=== PATIENT | female | born 1945 | race Caucasian/White ===

== ENCOUNTER 2018-03-15 09:35 | Emergency (ER) | payer MEDICARE, OTHER ==
[~2018-03-15] VITALS: Ht 167.6 cm; Wt 86.2 kg
--- OUTSIDE RECORDS SUMMARY | 2018-03-15 09:42 | XMS REPORT ---
Author Author WALLY VILLA [facility] Address [address] [place], [place] [id number] Care Team Providers Care Social Secretary Name Role Phone WALLY VILAL PCP WALLY VILLA PreferredProvider Allergies and Adverse Reactions Name Reaction Notes SULFA (SULFONAMIDES) PENICILLINS Plan of Treatment Planned Activity Comments Planned Date Planned Time Plan/Goal *Injection,Subcutaneous/Intramuscul 12/24/2012 12:00 AM Medications Active Name Start Date Estimated Completion Date SIG Comments lisinopril-hydrochlorothiazide 10-12.5 mg oral tablet 02/26/2017 TAKE 1 TABLET DAILY -THANK YOU. citalopram 10 mg oral tablet 02/12/2018 take 1 tablet (10 mg) by oral route once daily memantine 10 mg oral tablet 02/12/2018 05/13/2018 take 1 tablet (10 mg) by oral route 2 times per day for 30 days Name Start Date Expiration Date SIG Comments alprazolam 0.5 mg oral tablet 07/28/2011 08/27/2011 TAKE 1/2 TO 1 TABLET TWICE A DAY NEEDED FOR ANXIETY -THANK YOU. Phenergan-Codeine 6.25-10 mg/5 mL oral syrup 06/20/2012 take 5 milliliters by oral route 4 times a day Cipro 500 mg oral tablet 06/20/2012 take 1 tablet (500 mg) by oral route 2 times per day Antivert 25 mg oral tablet 12/30/2013 01/09/2014 take 1 tablet (25 mg) by oral route 4 times per day for 10 days amoxicillin 500 mg oral capsule 05/18/2014 06/17/2014 take 1 capsule by oral route 3 times a day for 30 days meloxicam 15 mg oral tablet 11/05/2014 12/05/2014 take 1 tablet (15 mg) by oral route once daily for 30 days lisinopril-hydrochlorothiazide 10-12.5 mg oral tablet 11/17/2014 05/16/2015 TAKE 1 TABLET DAILY -THANK YOU. lovastatin 20 mg oral tablet 05/15/2016 06/14/2016 take 1 tablet (20 mg) by oral route once daily with the evening meal for 30 days Macrodantin 50 mg oral capsule 06/15/2016 06/22/2016 take 1 capsule by oral route 3 times a day for 7 days Discontinued Name Start Date Discontinued Date SIG Comments Celexa 20 mg oral tablet 01/11/2011 05/25/2015 take 1 tablet (20 mg) by oral route once daily Suphedrine 30 mg oral tablet 12/30/2013 05/25/2015 take1- 2 tablets every 4 hours as needed for dizziness tramadol 50 mg oral tablet 11/05/2014 09/15/2017 take 1 tablet by oral route 4 times a day as needed fluticasone 50 mcg/actuation nasal spray,suspension 05/31/2015 INHALE 1 SPRAY BY NASAL ROUTE 2 TIMES A DAY Aricept 10 mg oral tablet 05/18/2016 09/15/2017 take 1 tablet (10 mg) by oral route once daily in the evening for 30 days fluticasone 50 mcg/actuation nasal spray,suspension 06/13/2016 10/05/2017 INHALE 1 SPRAY BY NASAL ROUTE 2 TIMES A DAY Problem List Description Status Onset Hypertension Active Headache Active Arthritis unspecified Active Hyperlipidemia Active Labyrinthitis Active 12/31/2013 Primary osteoarthritis involving multiple joints Active 05/26/2015 Type 2 diabetes mellitus without complication DIET controlled Active 2014 Mixed hyperlipidemia Active 05/26/2015 Memory loss of unknown cause Active 05/21/2016 Essential hypertension Active 09/15/2017 Senile dementia without behavioral disturbance Active 09/15/2017 Mild episode of recurrent major depressive disorder Active 09/15/2017 Medication management Active 03/09/2018 Loneliness Active 03/09/2018 Vital Signs Date Time BP-Sys(mm[Hg] BP-Naye(mm[Hg]) HR(bpm) RR(rpm) Temp WT HT HC BMI BSA BMI Percentile O2 Sat(%) 03/08/2018 9:42:00 AM 118 mmHg 66 mmHg 60 bpm 16 rpm 98.4 F 180 lbs 64 in 30.8966 kg/m 1.9201 m 98 % 02/12/2018 9:28:00 AM 118 mmHg 74 mmHg 86 bpm 18 rpm 98.2 F 179 lbs 64 in 30.72 kg/m2 1.91 m2 96 % 09/14/2017 10:53:00 AM 118 mmHg 74 mmHg 88 bpm 18 rpm 98.2 F 185 lbs 99 % 08/04/2016 10:15:00 AM 115 mmHg 70 mmHg 60 bpm 18 rpm 98.3 F 172 lbs 64 in 29.5234 kg/m 1.877 m 98 % 06/15/2016 2:29:00 PM 130 mmHg 62 mmHg 62 bpm 16 rpm 98.2 F 180 lbs 64 in 30.90 kg/m2 1.92 m2 98 % 05/18/2016 11:29:00 AM 130 mmHg 82 mmHg 59 bpm 18 rpm 97.3 F 180 lbs 64 in 30.90 kg/m2 1.92 m2 97 % 11/15/2015 1:28:00 PM 108 mmHg 60 mmHg 56 bpm 16 rpm 97.4 F 187 lbs 64 in 32.0981 kg/m 1.9571 m 97 % 05/25/2015 10:28:00 AM 110 mmHg 60 mmHg 64 bpm 16 rpm 97.8 F 178 lbs 64 in 30.55 kg/m2 1.91 m2 98 % 11/05/2014 2:49:00 PM 110 mmHg 70 mmHg 70 bpm 18 rpm 98.2 F 196 lbs 64 in 33.643 kg/m 2.0036 m 100 % 05/18/2014 9:12:00 AM 130 mmHg 60 mmHg 70 bpm 16 rpm 98.6 F 198 lbs 64 in 33.99 kg/m2 2.01 m2 96 % 01/21/2014 9:09:00 AM 140 mmHg 74 mmHg 100 bpm 20 rpm 98.6 F 206.312 lbs 64 in 35.4131 kg/m 2.0557 m 96 % 12/30/2013 3:16:00 PM 130 mmHg 62 mmHg 70 bpm 20 rpm 98.6 F 209 lbs 64 in 35.87 kg/m2 2.07 m2 95 % 11/17/2013 10:07:00 AM 118 mmHg 60 mmHg 64 bpm 20 rpm 98.3 F 212 lbs 64 in 36.3893 kg/m 2.0838 m 97 % 02/05/2013 9:58:00 AM 122 mmHg 70 mmHg 65 bpm 97.6 F 225 lbs 64 in 38.62 kg/m2 2.15 m2 99 % 01/07/2013 11:00:00 AM 100 mmHg 70 mmHg 67 bpm 16 rpm 97.9 F 224 lbs 64 in 38.4491 kg/m 2.142 m 67 % 12/24/2012 10:41:00 AM 132 mmHg 72 mmHg 74 bpm 18 rpm 98.2 F 228 lbs 64 in 39.14 kg/m2 2.16 m2 98 % 06/20/2012 2:04:00 PM 130 mmHg 60 mmHg 70 bpm 18 rpm 97.2 F 222 lbs 64 in 38.1058 kg/m 2.1324 m 96 % 02/01/2012 8:34:00 AM 126 mmHg 70 mmHg 64 bpm 216 lbs 64 in 37.08 kg/m2 2.1034 m 11/09/2011 9:29:00 AM 124 mmHg 70 mmHg 86 bpm 222 lbs 64 in 38.11 kg/m2 2.13 m2 98 % 07/28/2011 10:28:00 AM 118 mmHg 74 mmHg 74 bpm 221 lbs 64 in 37.9342 kg/m 2.1276 m 96 % 06/20/2011 10:34:00 AM 124 mmHg 78 mmHg 76 bpm 223 lbs 64 in 38.28 kg/m2 2.14 m2 03/14/2011 10:30:00 AM 116 mmHg 70 mmHg 58 bpm 210 lbs 95 % 01/19/2011 9:17:00 AM 124 mmHg 70 mmHg 84 bpm 99 % 01/11/2011 11:19:00 AM 114 mmHg 80 mmHg 82 bpm 226 lbs 97 % 07/20/2009 10:07:00 AM 122 mmHg 84 mmHg 239.125 lbs Social History Name Description Comments Exercises regularly Tobacco Never smoker denies alcohol use History of Procedures Date Ordered Description Order Status 05/25/2015 12:00 AM COMPLETE CBC W/AUTO DIFF WBC Reviewed 05/25/2015 12:00 AM COMPREHEN METABOLIC PANEL Reviewed 05/25/2015 12:00 AM LIPID PANEL Reviewed 05/25/2015 12:00 AM ROUTINE VENIPUNCTURE Reviewed 11/15/2015 12:00 AM REMOVE IMPACTED EAR WAX UNI Reviewed 11/29/2015 12:00 AM REMOVE IMPACTED EAR WAX UNI Reviewed 07/28/2011 12:00 AM THER/PROPH/DIAG INJ SC/IM Reviewed 07/28/2011 12:00 AM Decadron Inj.1mg-([facility] #[id number] Reviewed 07/28/2011 12:00 AM Depo-Medrol 80 Mg Im/[facility] [id number] Reviewed 08/25/2011 12:00 AM ROUTINE VENIPUNCTURE Reviewed 08/25/2011 12:00 AM COMPLETE CBC W/AUTO DIFF WBC Reviewed 08/25/2011 12:00 AM COMPREHEN METABOLIC PANEL Reviewed 08/25/2011 12:00 AM LIPID PANEL Reviewed 05/18/2016 12:00 AM COMPLETE CBC W/AUTO DIFF WBC Returned 05/18/2016 12:00 AM COMPREHEN METABOLIC PANEL Returned 05/18/2016 12:00 AM LIPID PANEL Returned 05/18/2016 12:00 AM ROUTINE VENIPUNCTURE Reviewed 06/15/2016 2:32 PM URINALYSIS AUTO W/O SCOPE Reviewed 11/30/2011 12:00 AM ROUTINE VENIPUNCTURE Reviewed 11/30/2011 12:00 AM LIPID PANEL Reviewed 05/15/2012 11:24 AM Flu Injection 3 Years And Above [facility]# [address]-42 [facility] Reviewed 05/15/2012 12:00 AM Pneumovax Injection - [facility] Reviewed 06/20/2012 12:00 AM THER/PROPH/DIAG INJ SC/IM Reviewed 06/20/2012 12:00 AM Decadron, Per 1 Mg [facility]# [address]-19 Reviewed 06/20/2012 12:00 AM Depo-Medrol, Per 80 Mg [facility]#6785-9591-20 Reviewed 09/14/2017 12:00 AM COMPLETE CBC W/AUTO DIFF WBC Returned 09/14/2017 12:00 AM COMPREHEN METABOLIC PANEL Returned 09/14/2017 12:00 AM LIPID PANEL Returned 09/14/2017 12:00 AM ROUTINE VENIPUNCTURE Reviewed 02/05/2013 12:00 AM THER/PROPH/DIAG INJ SC/IM Reviewed 02/05/2013 12:00 AM Decadron, Per 1 Mg [facility]# [address]-85 Reviewed 02/05/2013 12:00 AM Depo-Medrol, Per 80 Mg [facility]#1172-3319-39 Reviewed 02/05/2013 12:00 AM ROUTINE VENIPUNCTURE Reviewed 02/05/2013 12:00 AM COMPLETE CBC W/AUTO DIFF WBC Reviewed 02/05/2013 12:00 AM COMPREHEN METABOLIC PANEL Reviewed 02/05/2013 12:00 AM LIPID PANEL Reviewed 11/17/2013 12:00 AM COMPLETE CBC W/AUTO DIFF WBC Reviewed 11/17/2013 12:00 AM COMPREHEN METABOLIC PANEL Reviewed 11/17/2013 12:00 AM LIPID PANEL Reviewed 11/17/2013 12:00 AM ROUTINE VENIPUNCTURE Reviewed 05/26/2010 12:00 AM IMMUNIZATION ADMIN Reviewed 05/26/2010 12:00 AM FLU VACCINE 3 YRS & > IM Reviewed 12/30/2013 12:00 AM THER/PROPH/DIAG INJ SC/IM Reviewed 12/30/2013 12:00 AM Decadron, Per 1 Mg [facility]# [address]-11 Reviewed 05/18/2014 12:00 AM COMPLETE CBC W/AUTO DIFF WBC Reviewed 05/18/2014 12:00 AM COMPREHEN METABOLIC PANEL Reviewed 05/18/2014 12:00 AM LIPID PANEL Reviewed 05/18/2014 12:00 AM ROUTINE VENIPUNCTURE Reviewed 11/05/2014 12:00 AM THER/PROPH/DIAG INJ SC/IM Reviewed 11/05/2014 12:00 AM Decadron, Per 1 Mg [facility]# [address]-22 Reviewed 11/05/2014 12:00 AM Depo-Medrol, Per 80 Mg [facility]#0714-4213-68 Reviewed 11/05/2014 12:00 AM Toradol 60 Mg [facility]#8834-0752-32 Reviewed 11/26/2014 12:00 AM COMPLETE CBC W/AUTO DIFF WBC Reviewed 11/26/2014 12:00 AM COMPREHEN METABOLIC PANEL Reviewed 11/26/2014 12:00 AM LIPID PANEL Reviewed 11/26/2014 12:00 AM ROUTINE VENIPUNCTURE Reviewed 01/19/2011 12:00 AM THER/PROPH/DIAG INJ SC/IM Reviewed 01/19/2011 12:00 AM Nubain 10mg Reviewed 01/19/2011 12:00 AM Phenergan 50 Mg Im [id number] Reviewed Results Summary Date and Description Results 08/25/2011 2:52 PM WBC 7.0 RBC 4.32 HGB 13.0 g/dLHCT 40.10 %MCV 93.0 fLMCH 30.10 pgMCHC 32.40 g/dLRDW SD 46 RDW CV 13.60 %MPV 10.20 fLPLT 267 NRBC# 0.00 NRBC% 0.0 %NEUT 54.50 %%LYMP 36.90 %%MONO 5.60 %%EOS 1.70 %%BASO 1.30 %#NEUT 3.79 #LYMP 2.57 #MONO 0.39 #EOS 0.12 #BASO 0.09 MANUAL DIFF NOT IND GLUCOSE 94.0 mg/dLSODIUM 140.0 mmol/LPOTASSIUM 3.90 mmol/LCHLORIDE 101.0 mmol/LCO2 27.0 mmol/LBUN 18.0 mg/dLCREATININE 0.70 mg/dLSGOT/AST 22.0 IU/LSGPT/ALT 14.0 IU/ LALK PHOS 95.0 IU/LTOTAL PROTEIN 7.40 g/dLALBUMIN 4.20 g/dLTOTAL BILI 0.50 mg/ dLCALCIUM 9.70 mg/dLAGE 66 GFR NonAA 84 GFR AA 102 eGFR >60 mL/min/1.73 m2eGFR AA* >60 TRIGLYCERIDES 186.0 mg/dLCHOLESTEROL 275.0 mg/dLHDL 55.0 mg/dLTOT CHOL/ HDL 5.0 LDL (CALC) 183.0 mg/dL 11/30/2011 4:09 PM TRIGLYCERIDES 169.0 mg/dLCHOLESTEROL 202.0 mg/dLHDL 45.0 mg/ dLTOT CHOL/HDL 4.5 LDL (CALC) 123.0 mg/dL 02/05/2013 3:48 PM WBC 7.2 RBC 4.20 HGB 13.0 g/dLHCT 38.60 %MCV 92.0 fLMCH 31.0 pgMCHC 33.70 g/dLRDW SD 45 RDW CV 13.40 %MPV 9.40 fLPLT 298 NRBC# 0.00 NRBC % 0.0 %NEUT 63.10 %%LYMP 27.80 %%MONO 7.10 %%EOS 1.0 %%BASO 1.0 %#NEUT 4.56 # LYMP 2.01 #MONO 0.51 #EOS 0.07 #BASO 0.07 MANUAL DIFF NOT IND GLUCOSE 103.0 mg/ dLSODIUM 140.0 mmol/LPOTASSIUM 3.90 mmol/LCHLORIDE 99.0 mmol/LCO2 27.0 mmol/ LBUN 12.0 mg/dLCREATININE 0.70 mg/dLSGOT/AST 24.0 IU/LSGPT/ALT 18.0 IU/LALK PHOS 98.0 IU/LTOTAL PROTEIN 7.40 g/dLALBUMIN 4.0 g/dLTOTAL BILI 0.80 mg/ dLCALCIUM 9.70 mg/dLAGE 67 GFR NonAA 84 GFR AA 102 eGFR 60 eGFR AA* 60 TRIGLYCERIDES 189.0 mg/dLCHOLESTEROL 271.0 mg/dLHDL 50.0 mg/dLTOT CHOL/HDL 5.4 LDL (CALC) 183.0 mg/dL 11/17/2013 4:07 PM GLUCOSE 109.0 mg/dLSODIUM 141.0 mmol/LPOTASSIUM 3.60 mmol/ LCHLORIDE 103.0 mmol/LCO2 27.0 mmol/LBUN 13.0 mg/dLCREATININE 0.80 mg/dLSGOT/ AST 23.0 IU/LSGPT/ALT 20.0 IU/LALK PHOS 90.0 IU/LTOTAL PROTEIN 7.30 g/dLALBUMIN 4.10 g/dLTOTAL BILI 0.60 mg/dLCALCIUM 9.40 mg/dLAGE 68 GFR NonAA 72 GFR AA 87 eGFR 60 eGFR AA* 60 TRIGLYCERIDES 136.0 mg/dLCHOLESTEROL 216.0 mg/dLHDL 48.0 mg/ dLTOT CHOL/HDL 4.5 LDL 137.0 mg/dLWBC 7.2 RBC 4.19 HGB 12.70 g/dLHCT 38.50 %MCV 92.0 fLMCH 30.30 pgMCHC 33.0 g/dLRDW SD 45 RDW CV 13.60 %MPV 9.60 fLPLT 294 NRBC # 0.00 NRBC% 0.0 %NEUT 67.80 %%LYMP 24.0 %%MONO 6.50 %%EOS 0.70 %%BASO 1.0 %# NEUT 4.87 #LYMP 1.72 #MONO 0.47 #EOS 0.05 #BASO 0.07 MANUAL DIFF NOT IND 05/18/2014 3:56 PM WBC 6.0 RBC 4.24 HGB 12.80 g/dLHCT 38.50 %MCV 91.0 fLMCH 30.20 pgMCHC 33.20 g/dLRDW SD 44 RDW CV 13.30 %MPV 9.40 fLPLT 299 NRBC# 0.00 NRBC% 0.0 %NEUT 62.20 %%LYMP 28.30 %%MONO 6.80 %%EOS 1.20 %%BASO 1.50 %#NEUT 3.76 #LYMP 1.71 #MONO 0.41 #EOS 0.07 #BASO 0.09 MANUAL DIFF NOT IND TRIGLYCERIDES 161.0 mg/dLCHOLESTEROL 226.0 mg/dLHDL 46.0 mg/dLTOT CHOL/HDL 4.9 LDL (CALC) 148.0 mg/dLGLUCOSE 109.0 mg/dLSODIUM 139.0 mmol/LPOTASSIUM 3.60 mmol/ LCHLORIDE 101.0 mmol/LCO2 26.0 mmol/LBUN 9.0 mg/dLCREATININE 0.80 mg/dLSGOT/AST 22.0 IU/LSGPT/ALT 18.0 IU/LALK PHOS 78.0 IU/LTOTAL PROTEIN 7.0 g/dLALBUMIN 4.0 g /dLTOTAL BILI 0.80 mg/dLCALCIUM 9.90 mg/dLAGE 68 GFR NonAA 72 GFR AA 87 eGFR 60 eGFR AA* 60 11/26/2014 3:25 PM TRIGLYCERIDES 122.0 mg/dLCHOLESTEROL 202.0 mg/dLHDL 53.0 mg/ dLTOT CHOL/HDL 3.8 LDL (CALC) 125.0 mg/dLGLUCOSE 91.0 mg/dLSODIUM 143.0 mmol/ LPOTASSIUM 3.80 mmol/LCHLORIDE 100.0 mmol/LCO2 29.0 mmol/LBUN 12.0 mg/ dLCREATININE 0.80 mg/dLSGOT/AST 19.0 IU/LSGPT/ALT 17.0 IU/LALK PHOS 81.0 IU/ LTOTAL PROTEIN 7.40 g/dLALBUMIN 4.40 g/dLTOTAL BILI 0.90 mg/dLCALCIUM 10.20 mg/ dLAGE 69 GFR NonAA 71 GFR AA 86 eGFR >60 mL/min/1.73 m2eGFR AA* >60 WBC 7.2 RBC 4.44 HGB 13.60 g/dLHCT 40.90 %MCV 92.0 fLMCH 30.60 pgMCHC 33.30 g/dLRDW SD 45 RDW CV 13.40 %MPV 9.40 fLPLT 290 NRBC# 0.00 NRBC% 0.0 %NEUT 67.50 %%LYMP 24.80 % %MONO 6.50 %%EOS 0.80 %%BASO 0.40 %#NEUT 4.86 #LYMP 1.79 #MONO 0.47 #EOS 0.06 # BASO 0.03 MANUAL DIFF NOT IND 05/25/2015 4:20 PM WBC 7.0 RBC 4.50 HGB 13.60 g/dLHCT 41.70 %MCV 93.0 fLMCH 30.20 pgMCHC 32.60 g/dLRDW SD 47 RDW CV 13.80 %MPV 9.30 fLPLT 286 NRBC# 0.00 NRBC% 0.0 %NEUT 68.90 %%LYMP 23.80 %%MONO 5.90 %%EOS 0.40 %%BASO 1.0 %#NEUT 4.80 #LYMP 1.66 #MONO 0.41 #EOS 0.03 #BASO 0.07 MANUAL DIFF NOT IND GLUCOSE 107.0 mg/dLSODIUM 140.0 mmol/LPOTASSIUM 3.60 mmol/LCHLORIDE 101.0 mmol/LCO2 28.0 mmol/LBUN 11.0 mg/dLCREATININE 0.80 mg/dLSGOT/AST 22.0 IU/LSGPT/ALT 17.0 IU /LALK PHOS 85.0 IU/LTOTAL PROTEIN 7.20 g/dLALBUMIN 4.40 g/dLTOTAL BILI 0.70 mg/ dLCALCIUM 10.10 mg/dLAGE 69 GFR NonAA 71 GFR AA 86 eGFR >60 mL/min/1.73meGFR AA* >60 TRIGLYCERIDES 142.0 mg/dLCHOLESTEROL 212.0 mg/dLHDL 53.0 mg/dLTOT CHOL/ HDL 4.0 LDL (CALC) 131.0 mg/dL 06/15/2016 2:32 PM Clarity Ur clear Color Ur dark yellow Glucose Ur-sCnc - Bilirub Ur Ql Strip - Ketones Ur Ql Strip - Sp Gr Ur Qn 1.025 Hgb Ur Ql Strip large pH Ur-LsCnc 6.0 Prot Ur Ql Strip - Urobilinogen Ur-mCnc - Nitrite Ur Ql Strip - WBC Est Ur Ql Strip trace History Of Immunizations Name Date Admin Mfg Name Mfg Code Trade Name Lot# Route Inj Vis Given Vis Pub CVX Influenza 05/26/2010 sanofi pasteur PMC FLUZONE [id number] Intramuscular Left Deltoid 05/26/2010 02/22/2010 999 Influenza 05/15/2012 sanofi pasteur PMC FLUZONE [id number] Intramuscular Right Deltoid 05/15/2012 01/15/2012 141 X 05/15/2012 [employer] MSD PNEUMOVAX 23 [id number] Intramuscular Left Deltoid 05/15/2012 02/21/2008 33 Influenza 06/03/2016 Raymond FLUVIRIN [id number] Intramuscular Right Upper Arm 06/03/2016 02/19/2015 141 History of Past Illness Name Date of Onset Comments Back Muscle Spasm Jul 20 2009 10:11AM Gastroesophageal Reflux Jul 20 2009 10:11AM Obesity Jul 20 2009 10:11AM Arthritis unspecified Headache Hypertension Depression and anxiety Hyperlipidemia Labyrinthitis 12/31/2013 Flu May 26 2010 8:31AM Primary osteoarthritis involving multiple joints 05/26/2015 Type 2 diabetes mellitus without complication DIET controlled 05/26/2015 Mixed hyperlipidemia 05/26/2015 Memory loss of unknown cause 05/21/2016 Depressive Disorder Jan 11 2011 11:18AM Essential Hypertension Jan 19 2011 9:16AM Headache Jan 19 2011 9:16AM Anxiety Disorder Jan 19 2011 9:16AM Depressive Disorder Jan 19 2011 9:16AM Essential Hypertension Mar 14 2011 10:28AM Osteoarthrosis, generalized, multiple sites Mar 14 2011 10:28AM Depressive Disorder Mar 14 2011 10:28AM Essential hypertension 09/15/2017 Senile dementia without behavioral disturbance 09/15/2017 Mild episode of recurrent major depressive disorder 09/15/2017 Dementia arising in the senium and presenium 02/12/2018 Medication management 03/09/2018 Loneliness 03/09/2018 Essential Hypertension Jun 20 2011 10:35AM Anxiety Disorder Jun 20 2011 10:35AM Depressive Disorder Jun 20 2011 10:35AM Cough Jul 28 2011 10:29AM Bronchitis, Acute Jul 28 2011 10:29AM Hypertension Aug 25 2011 9:08AM Hyperlipidemia Aug 25 2011 9:08AM General Medical Exam, Adult Nov 09 2011 9:33AM Hyperlipidemia Nov 30 2011 9:25AM Anxiety Disorder Feb 01 2012 8:40AM Depressive Disorder Feb 01 2012 8:40AM Flu May 15 2012 11:24AM Pneumococcus May 15 2012 11:25AM Cough Jun 20 2012 2:05PM Post-nasal drainage Jun 20 2012 2:05PM Upper Respiratory Infection Jun 20 2012 2:05PM Eustachian Tube Dysfunction Dec 24 2012 10:41AM Seasonal Allergies Dec 24 2012 10:41AM Post-nasal drainage Dec 24 2012 10:41AM Labyrinthitis Dec 24 2012 10:41AM Labyrinthitis Jan 07 2013 11:02AM Seasonal Allergies Feb 05 2013 10:00AM Upper Respiratory Infection Feb 05 2013 10:00AM Labyrinthitis Feb 05 2013 10:00AM Hypertension Feb 05 2013 11:43AM Hyperlipidemia Feb 05 2013 11:43AM Hypertension Nov 17 2013 10:12AM Hyperlipidemia Nov 17 2013 10:12AM Depression and anxiety Nov 17 2013 10:12AM residential medication use Nov 17 2013 10:12AM Eustachian Tube Dysfunction Nov 17 2013 10:07AM Hypertension Nov 17 2013 10:07AM Hyperlipidemia Nov 17 2013 10:07AM Seasonal Allergies Dec 30 2013 3:17PM Labyrinthitis Dec 30 2013 3:17PM Eustachian Tube Dysfunction Jan 21 2014 9:10AM Seasonal Allergies Jan 21 2014 9:10AM Post-nasal drainage Jan 21 2014 9:10AM Hypertension May 18 2014 9:16AM Hyperlipidemia May 18 2014 9:16AM residential use of drug May 18 2014 9:16AM Eustachian Tube Dysfunction May 18 2014 9:12AM Hypertension May 18 2014 9:12AM Arthritis unspecified May 18 2014 9:12AM Hyperlipidemia May 18 2014 9:12AM Depression and anxiety May 18 2014 9:12AM Hearing loss May 18 2014 9:12AM Foot pain, right Nov 05 2014 2:50PM Hypertension Nov 26 2014 10:51AM Hyperlipidemia Nov 26 2014 10:51AM joint terminal attack controller use of drug Nov 26 2014 10:51AM Hypertension May 25 2015 11:53AM Hyperlipidemia May 25 2015 11:53AM joint terminal attack controller use of drug May 25 2015 11:53AM Primary osteoarthritis involving multiple joints May 25 2015 10:29AM Type 2 diabetes mellitus without complication DIET controlled May 25 2015 10: 29AM Hypertension May 25 2015 10:29AM Mixed hyperlipidemia May 25 2015 10:29AM Mild Chronic Depression and anxiety Stable May 25 2015 10:29AM Bilateral impacted cerumen Nov 15 2015 1:28PM Moderate Acute Diminished hearing, bilateral Nov 15 2015 1:28PM Cerumen Impaction Nov 22 2015 4:20PM Cerumen Impaction Nov 29 2015 11:27AM Acute diffuse otitis externa of both ears Nov 29 2015 11:27AM Hypertension May 18 2016 10:57AM Hyperlipidemia May 18 2016 10:57AM residential use of drug May 18 2016 10:57AM Mild Acute Memory loss of unknown cause May 18 2016 11:29AM Acute cystitis with hematuria Jun 15 2016 2:30PM Moderate Chronic Stress incontinence, female Jun 15 2016 2:30PM Actinic keratoses Aug 04 2016 11:39AM Hypertension Sep 14 2017 8:39AM Hyperlipidemia Sep 14 2017 8:39AM residential use of drug Sep 14 2017 8:39AM Mixed hyperlipidemia Sep 14 2017 10:53AM Primary osteoarthritis involving multiple joints Sep 14 2017 10:53AM Type 2 diabetes mellitus without complication DIET controlled Sep 14 2017 10: 53AM Essential hypertension Sep 14 2017 10:53AM Senile dementia without behavioral disturbance Sep 14 2017 10:53AM Mild episode of recurrent major depressive disorder Sep 14 2017 10:53AM Moderate Dementia arising in the senium and presenium Worsening Feb 12 2018 9 :29AM Essential hypertension Feb 12 2018 9:29AM Memory loss of unknown cause Feb 12 2018 9:29AM Mild episode of recurrent major depressive disorder Feb 12 2018 9:29AM Senile dementia without behavioral disturbance Feb 12 2018 9:29AM Type 2 diabetes mellitus without complication DIET controlled Feb 12 2018 9: 29AM Essential hypertension Mar 08 2018 9:43AM Mild episode of recurrent major depressive disorder Mar 08 2018 9:43AM Senile dementia without behavioral disturbance Mar 08 2018 9:43AM Medication management Mar 08 2018 9:43AM Moderate Loneliness Mar 08 2018 9:43AM Payers Insurance Name Company Name Plan Name Plan Number Policy Number Policy Group Number Start Date Medicare [employer] Medicare [employer] [id number] N/A [facility] [id number] N/A Medicare Part A Medicare Part A [id number] N/A [employer] [id number] N/A [employer] [id number] N/A Medicare Part A Medicare - Lab/Xray [id number] N/A Medicare RH Medicare RH [id number] N/A [employer] [id number] Friday, July 16, 2010 History of Encounters Visit Date Visit Type Provider 03/08/2018 Office visit WALLY VILLA PA 02/12/2018 Office visit WALLY VILLA PA 09/14/2017 Office visit WALLY VILLA PA 08/04/2016 Office visit WALLY VILLA PA 06/15/2016 Office visit WALLY VILLA PA 05/18/2016 Office visit WALLY VILLA PA 11/29/2015 Office visit WALLY VILLA PA 11/15/2015 Office visit WALLY VILLA PA 05/25/2015 Office visit WALLY VILLA PA 11/26/2014 Office visit WALLY VILLA PA 11/05/2014 Office visit 11/05/2014 Office visit WALLY VILLA PA 05/18/2014 Office visit WALLY VILLA PA 01/21/2014 Office visit WALLY VILLA PA 12/30/2013 Office visit WALLY VILLA PA 11/17/2013 Office visit WALLY VILLA PA 02/05/2013 Office visit WALLY VILLA PA 01/07/2013 Office visit WALLY VILLA PA 12/24/2012 Office visit WALLY VILLA PA 06/20/2012 Office visit WALLY VILLA PA 05/15/2012 Office visit WALLY VILLA PA 02/01/2012 Office visit WALLY VILLA PA 11/30/2011 Office visit WALLY VILLA PA 11/09/2011 Office visit WALLY VILLA PA 08/25/2011 Office visit WALLY VILLA PA 07/28/2011 Office visit WALLY VILLA PA 06/20/2011 Office visit WALLY VILLA PA 03/14/2011 Office visit Wally Villa PA-C 02/06/2011 Office visit Wally Villa PA-C 01/19/2011 Office visit Wally Villa PA-C 01/11/2011 Office visit Wally Villa PA-C 05/26/2010 Nurse visit Wally Villa PA-C 07/20/2009 Office visit Wally Villa PA-C 05/19/2009 Nurse visit Wally Villa PA-C
--- OUTSIDE RECORDS SUMMARY | 2018-03-15 09:43 | XMS REPORT ---
Author Author WALLY VILLA [facility] Address [address] [place], [place] [id number] Care Team Providers Care Real Estate Agent/Broker Name Role Phone WALLY VILLA PCP Allergies and Adverse Reactions Name Reaction Notes [...] of recurrent major depressive disorder Active 09/15/2017 Vital Signs Date Time BP-Sys(mm[Hg] BP-Naye(mm[Hg]) HR(bpm) RR(rpm) Temp WT HT HC BMI BSA BMI Percentile O2 Sat(%) 02/12/2018 9:28:00 AM 118 mmHg 74 mmHg 86 bpm 18 rpm 98.2 F 179 lbs 64 in 30.725 kg/m 1.9148 m 96 % 09/14/2017 10:53:00 AM 118 mmHg [...] bpm 216 lbs 64 in 37.08 kg/m2 2.10 m2 11/09/2011 9:29:00 AM 124 mmHg 70 mmHg [...] INJ SC/IM Reviewed 07/28/2011 12:00 AM Decadron Inj.1mg-([facility]) [facility] #[id number] Reviewed 07/28/2011 12:00 AM Depo-Medrol 80 Mg Im/[facility] [id number] Reviewed 08/25/2011 12:00 AM ROUTINE VENIPUNCTURE Reviewed [...] AM Flu Injection 3 Years And Above [facility]# [address]-06 RHC Reviewed 05/15/2012 12:00 AM Pneumovax Injection - [facility] Reviewed 06/20/2012 12:00 AM THER/PROPH/DIAG INJ SC/IM Reviewed 06/20/2012 12:00 AM Decadron, Per 1 Mg [facility]# [address]-56 Reviewed 06/20/2012 12:00 AM Depo-Medrol, Per 80 Mg [facility]#4328-0824-03 Reviewed 09/14/2017 12:00 AM COMPLETE CBC W/AUTO DIFF WBC Returned 09/14/2017 12:00 AM COMPREHEN METABOLIC PANEL Returned 09/14/2017 12:00 AM LIPID PANEL Returned 09/14/2017 12:00 AM ROUTINE VENIPUNCTURE Reviewed 02/05/2013 12:00 AM THER/PROPH/DIAG INJ SC/IM Reviewed 02/05/2013 12:00 AM Decadron, Per 1 Mg [facility]# [address]-45 Reviewed 02/05/2013 12:00 AM Depo-Medrol, Per 80 Mg [facility]#7531-5705-11 Reviewed 02/05/2013 12:00 AM ROUTINE VENIPUNCTURE Reviewed [...] 12/30/2013 12:00 AM Decadron, Per 1 Mg [facility]# [address]-86 Reviewed 05/18/2014 12:00 AM COMPLETE CBC W/AUTO DIFF WBC Reviewed 05/18/2014 12:00 AM COMPREHEN METABOLIC PANEL Reviewed 05/18/2014 12:00 AM LIPID PANEL Reviewed 05/18/2014 12:00 AM ROUTINE VENIPUNCTURE Reviewed 11/05/2014 12:00 AM THER/PROPH/DIAG INJ SC/IM Reviewed 11/05/2014 12:00 AM Decadron, Per 1 Mg [facility]# [address]-24 Reviewed 11/05/2014 12:00 AM Depo-Medrol, Per 80 Mg [facility]#5531-6172-00 Reviewed 11/05/2014 12:00 AM Toradol 60 Mg [facility]#5419-6284-12 Reviewed 11/26/2014 12:00 AM COMPLETE CBC W/AUTO DIFF WBC Reviewed 11/26/2014 12:00 AM COMPREHEN METABOLIC PANEL Reviewed 11/26/2014 12:00 AM LIPID PANEL Reviewed 11/26/2014 12:00 AM ROUTINE VENIPUNCTURE Reviewed 01/19/2011 12:00 AM THER/PROPH/DIAG INJ SC/IM Reviewed 01/19/2011 12:00 AM Nubain 10mg Reviewed 01/19/2011 12:00 AM Phenergan 50 Mg Im [id number] Reviewed Results Summary Date and Description Results [...] CVX Influenza 05/26/2010 sanofi pasteur PMC FLUZONE [id number] Intramuscular Left Deltoid 05/26/2010 02/22/2010 999 Influenza 05/15/2012 sanofi pasteur PMC FLUZONE [id number] Intramuscular Right Deltoid 05/15/2012 01/15/2012 141 X 05/15/2012 Merck [employer] Co[employer] Inc. MSD PNEUMOVAX 23 [id number] Intramuscular Left Deltoid 05/15/2012 02/21/2008 33 Influenza 06/03/2016 Raymond FLUVIRIN [id number] Intramuscular Right Upper Arm 06/03/2016 02/19/2015 141 [...] arising in the senium and presenium 02/12/2018 Essential Hypertension Jun 20 2011 10:35AM Anxiety [...] Depression and anxiety Nov 17 2013 10:12AM long term medication use Nov 17 2013 10:12AM Eustachian Tube Dysfunction Nov 17 2013 10:07AM Hypertension Nov 17 2013 10:07AM Hyperlipidemia Nov 17 2013 10:07AM Seasonal Allergies Dec 30 2013 3:17PM Labyrinthitis Dec 30 2013 3:17PM Eustachian Tube Dysfunction Jan 21 2014 9:10AM Seasonal Allergies Jan 21 2014 9:10AM Post-nasal drainage Jan 21 2014 9:10AM Hypertension May 18 2014 9:16AM Hyperlipidemia May 18 2014 9:16AM long term use of drug May 18 2014 9:16AM Eustachian Tube Dysfunction May 18 2014 9:12AM Hypertension May 18 2014 9:12AM Arthritis unspecified May 18 2014 9:12AM Hyperlipidemia May 18 2014 9:12AM Depression and anxiety May 18 2014 9:12AM Hearing loss May 18 2014 9:12AM Foot pain, right Nov 05 2014 2:50PM Hypertension Nov 26 2014 10:51AM Hyperlipidemia Nov 26 2014 10:51AM long term use of drug Nov 26 2014 10:51AM Hypertension May 25 2015 11:53AM Hyperlipidemia May 25 2015 11:53AM long term use of drug May 25 2015 11:53AM [...] 2016 10:57AM Hyperlipidemia May 18 2016 10:57AM longterm use of drug May 18 2016 10:57AM Mild Acute Memory loss of unknown cause May 18 2016 11:29AM Acute cystitis with hematuria Jun 15 2016 2:30PM Moderate Chronic Stress incontinence, female Jun 15 2016 2:30PM Actinic keratoses Aug 04 2016 11:39AM Hypertension Sep 14 2017 8:39AM Hyperlipidemia Sep 14 2017 8:39AM long term use of drug Sep 14 2017 8:39AM [...] DIET controlled Feb 12 2018 9: 29AM Payers Insurance Name Company Name Plan Name Plan Number Policy Number Policy Group Number Start Date Medicare [facility] Medicare [facility] [id number] N/A [employer] [id number] Friday, 2010 BCBS [employer] [id number] N/A Medicare Part A Medicare Part A [id number] N/A [employer] [id number] N/A [employer] [id number] N/A Medicare Part A Medicare - Lab/Xray [id number] N/A History of Encounters Visit Date Visit Type Provider 02/12/2018 Office visit WALLY JUAREZ 09/14/2017 Office visit WALLY JUAREZ 08/04/2016 Office visit WALLY JUAREZ 06/15/2016 Office visit WALLY JUAREZ 05/18/2016 Office visit WALLY JUAREZ 11/29/2015 Office visit WALLY JUAREZ 11/15/2015 Office visit WALLY JUAREZ 05/25/2015 Office visit WALLY JUAREZ 11/26/2014 Office visit WALLY JUAREZ 11/05/2014 Office visit 11/05/2014 Office visit WALLY JUAREZ 05/18/2014 Office visit WALLY JUAREZ 01/21/2014 Office visit WALLY VILLA PA 12/30/2013 [...]
--- OUTSIDE RECORDS SUMMARY | 2018-03-15 09:44 | XMS REPORT ---
Author Author [facility] Organization [facility] Address [address] [place], [place] [phone] Care Team Providers Care Crusher Setter Name Role Phone PCP Unavailable Allergies and Adverse Reactions Name Reaction Notes SULFA (SULFONAMIDES) PENICILLINS Plan of Treatment Planned Activity Comments Planned Date Planned Time Plan/Goal COMPLETE CBC W/AUTO DIFF WBC 11/26/2014 12:00 AM COMPREHEN METABOLIC PANEL 11/26/2014 12:00 AM LIPID PANEL 11/26/2014 12:00 AM Medications Active Name Start Date Estimated Completion Date SIG Comments Celexa Oral Tablet 20 mg 01/11/2011 take 1 tablet (20 mg) by oral route once daily Suphedrine oral tablet 30 mg 12/30/2013 take1- 2 tablets every 4 hours as needed for dizziness Flonase nasal spray,suspension 50 mcg/actuation 05/18/2014 inhale 1 spray by nasal route 2 times a day meloxicam oral tablet 15 mg 11/05/2014 12/05/2014 take 1 tablet (15 mg) by oral route once daily for 30 days tramadol oral tablet 50 mg 11/05/2014 take 1 tablet by oral route 4 times a day as needed lovastatin Oral Tablet 20 mg 11/17/2014 05/16/2015 take 1 tablet (20 mg) by oral route once daily with the evening meal for 30 days lisinopril-hydrochlorothiazide oral tablet 10-12.5 mg 11/17/2014 05/16/2015 TAKE 1 TABLET DAILY -THANK YOU. Name Start Date Expiration Date SIG Comments alprazolam Oral Tablet 0.5 mg 07/28/2011 08/27/2011 TAKE 1/2 TO 1 TABLET TWICE A DAY NEEDED FOR ANXIETY -THANK YOU. Phenergan-Codeine Oral Syrup 6.25-10 mg/5 mL 06/20/2012 take 5 milliliters by oral route 4 times a day Cipro Oral tablet 500 mg 06/20/2012 take 1 tablet (500 mg) by oral route 2 times per day Antivert Oral tablet 25 mg 12/30/2013 01/09/2014 take 1 tablet (25 mg) by oral route 4 times per day for 10 days amoxicillin oral capsule 500 mg 05/18/2014 06/17/2014 take 1 capsule by oral route 3 times a day for 30 days Problem List Description Status Onset Hypertension Active Headache Active Arthritis unspecified Active Hyperlipidemia Active Depression and anxiety Active Labyrinthitis Active 12/31/2013 Vital Signs Date Time BP-Sys(mm[Hg] BP-Naye(mm[Hg]) HR(bpm) RR(rpm) Temp WT HT HC BMI BSA BMI Percentile O2 Sat(%) 11/05/2014 2:49:00 PM 110 mmHg 70 mmHg 70 bpm 18 rpm 98.2 F 196 lbs 64 in 33.64 kg/m2 2.00 m2 100 % 05/18/2014 9:12:00 AM 130 mmHg 60 mmHg 70 bpm 16 rpm 98.6 F 198 lbs 64 in 33.9863 kg/m 2.0138 m 96 % 01/21/2014 9:09:00 AM 140 mmHg 74 mmHg 100 bpm 20 rpm 98.6 F 206.312 lbs 64 in 35.41 kg/m2 2.06 m2 96 % 12/30/2013 3:16:00 PM 130 mmHg 62 mmHg 70 bpm 20 rpm 98.6 F 209 lbs 64 in 35.8744 kg/m 2.069 m 95 % 11/17/2013 10:07:00 AM 118 mmHg 60 mmHg 64 bpm 20 rpm 98.3 F 212 lbs 64 in 36.39 kg/m2 2.08 m2 97 % 02/05/2013 9:58:00 AM 122 mmHg 70 mmHg 65 bpm 97.6 F 225 lbs 64 in 38.6208 kg/m 2.1467 m 99 % 01/07/2013 11:00:00 AM 100 mmHg 70 mmHg 67 bpm 16 rpm 97.9 F 224 lbs 64 in 38.45 kg/m2 2.14 m2 67 % 12/24/2012 10:41:00 AM 132 mmHg 72 mmHg 74 bpm 18 rpm 98.2 F 228 lbs 64 in 39.1357 kg/m 2.161 m 98 % 06/20/2012 2:04:00 PM 130 mmHg 60 mmHg 70 bpm 18 rpm 97.2 F 222 lbs 64 in 38.11 kg/m2 2.13 m2 96 % 02/01/2012 8:34:00 AM 126 mmHg 70 mmHg 64 bpm 216 lbs 64 in 37.0759 kg/m 2.1034 m 11/09/2011 9:29:00 AM 124 mmHg [...] of Procedures Date Ordered Description Order Status 07/28/2011 12:00 AM THER/PROPH/DIAG INJ SC/IM Reviewed 08/25/2011 12:00 AM ROUTINE VENIPUNCTURE Reviewed 08/25/2011 12:00 AM COMPLETE CBC W/AUTO DIFF WBC Returned 08/25/2011 12:00 AM COMPREHEN METABOLIC PANEL Returned 08/25/2011 12:00 AM LIPID PANEL Returned 11/30/2011 12:00 AM ROUTINE VENIPUNCTURE Reviewed 11/30/2011 12:00 AM LIPID PANEL Returned 06/20/2012 12:00 AM THER/PROPH/DIAG INJ SC/IM Reviewed 02/05/2013 12:00 AM THER/PROPH/DIAG INJ SC/IM Reviewed 02/05/2013 12:00 AM ROUTINE VENIPUNCTURE Reviewed [...] 12/30/2013 12:00 AM THER/PROPH/DIAG INJ SC/IM Reviewed 05/18/2014 12:00 AM COMPLETE CBC W/AUTO DIFF WBC Returned 05/18/2014 12:00 AM COMPREHEN METABOLIC PANEL Returned 05/18/2014 12:00 AM LIPID PANEL Returned 05/18/2014 12:00 AM ROUTINE VENIPUNCTURE Reviewed 11/05/2014 12:00 AM THER/PROPH/DIAG INJ SC/IM Reviewed 11/26/2014 12:00 AM ROUTINE VENIPUNCTURE Reviewed 01/19/2011 12:00 AM THER/PROPH/DIAG INJ SC/IM Reviewed Results Summary Data and Description Results 08/25/2011 2:52 PM WBC 7.0 RBC 4.32 HGB 13.0 g/dLHCT 40.10 %MCV 93.0 fLMCH 30.10 pgMCHC 32.40 g/dLRDW CV 13.60 %MPV 10.20 fLPLT 267 %NEUT 54.50 %%LYMP 36.90 %%MONO 5.60 %%EOS 1.70 %%BASO 1.30 %#NEUT 3.79 #LYMP 2.57 #MONO 0.39 #EOS 0.12 #BASO 0.09 GLUCOSE 94.0 mg/dLSODIUM 140.0 mmol/LPOTASSIUM 3.90 mmol/ LCHLORIDE 101.0 mmol/LCO2 27.0 mmol/LBUN 18.0 mg/dLCREATININE 0.70 mg/dLSGOT/ AST 22.0 IU/LSGPT/ALT 14.0 IU/LALK PHOS 95.0 IU/LTOTAL PROTEIN 7.40 g/dLALBUMIN 4.20 g/dLTOTAL BILI 0.50 mg/dLCALCIUM 9.70 mg/dLeGFR >60 mL/min/1.73 [id number] 186.0 mg/dLCHOLESTEROL 275.0 mg/dLHDL 55.0 mg/dLLDL (CALC) 183.0 mg/dL 11/30/2011 4:09 PM TRIGLYCERIDES 169.0 mg/dLCHOLESTEROL 202.0 mg/dLHDL 45.0 mg/ dLLDL (CALC) 123.0 mg/dL 02/05/2013 3:48 PM WBC 7.2 RBC 4.20 HGB 13.0 g/dLHCT 38.60 %MCV 92.0 fLMCH 31.0 pgMCHC 33.70 g/dLRDW CV 13.40 %MPV 9.40 fLPLT 298 %NEUT 63.10 %%LYMP 27.80 %%MONO 7.10 %%EOS 1.0 %%BASO 1.0 %#NEUT 4.56 #LYMP 2.01 #MONO 0.51 #EOS 0.07 # BASO 0.07 GLUCOSE 103.0 mg/dLSODIUM 140.0 mmol/LPOTASSIUM 3.90 mmol/LCHLORIDE 99.0 mmol/LCO2 27.0 mmol/LBUN 12.0 mg/dLCREATININE 0.70 mg/dLSGOT/AST 24.0 IU/ LSGPT/ALT 18.0 IU/LALK PHOS 98.0 IU/LTOTAL PROTEIN 7.40 g/dLALBUMIN 4.0 g/ dLTOTAL BILI 0.80 mg/dLCALCIUM 9.70 mg/dLeGFR 60 TRIGLYCERIDES 189.0 mg/ dLCHOLESTEROL 271.0 mg/dLHDL 50.0 mg/dLLDL (CALC) 183.0 mg/dL 11/17/2013 4:07 PM GLUCOSE 109.0 mg/dLSODIUM 141.0 mmol/LPOTASSIUM 3.60 mmol/ LCHLORIDE 103.0 mmol/LCO2 27.0 mmol/LBUN 13.0 mg/dLCREATININE 0.80 mg/dLSGOT/ AST 23.0 IU/LSGPT/ALT 20.0 IU/LALK PHOS 90.0 IU/LTOTAL PROTEIN 7.30 g/dLALBUMIN 4.10 g/dLTOTAL BILI 0.60 mg/dLCALCIUM 9.40 mg/dLeGFR 60 TRIGLYCERIDES 136.0 mg/ dLCHOLESTEROL 216.0 mg/dLHDL 48.0 mg/dLLDL 137.0 mg/dLWBC 7.2 RBC 4.19 HGB 12.70 g/dLHCT 38.50 %MCV 92.0 fLMCH 30.30 pgMCHC 33.0 g/dLRDW CV 13.60 %MPV 9.60 fLPLT 294 %NEUT 67.80 %%LYMP 24.0 %%MONO 6.50 %%EOS 0.70 %%BASO 1.0 %#NEUT 4.87 #LYMP 1.72 #MONO 0.47 #EOS 0.05 #BASO 0.07 05/18/2014 3:56 PM WBC 6.0 RBC 4.24 HGB 12.80 g/dLHCT 38.50 %MCV 91.0 fLMCH 30.20 pgMCHC 33.20 g/dLRDW CV 13.30 %MPV 9.40 fLPLT 299 %NEUT 62.20 %%LYMP 28.30 %%MONO 6.80 %%EOS 1.20 %%BASO 1.50 %#NEUT 3.76 #LYMP 1.71 #MONO 0.41 #EOS 0.07 #BASO 0.09 TRIGLYCERIDES 161.0 mg/dLCHOLESTEROL 226.0 mg/dLHDL 46.0 mg/ dLLDL (CALC) 148.0 mg/dLGLUCOSE 109.0 mg/dLSODIUM 139.0 mmol/LPOTASSIUM 3.60 mmol/LCHLORIDE 101.0 mmol/LCO2 26.0 mmol/LBUN 9.0 mg/dLCREATININE 0.80 mg/dLSGOT /AST 22.0 IU/LSGPT/ALT 18.0 IU/LALK PHOS 78.0 IU/LTOTAL PROTEIN 7.0 g/dLALBUMIN 4.0 g/dLTOTAL BILI 0.80 mg/dLCALCIUM 9.90 mg/dLeGFR 60 History Of Immunizations Name Date Admin Mf Name Mf Code Trade Name Lot# Route Inj Vis Given Vis Pub CVX Influenza 05/26/2010 sanofi pasteur PMC Fluzone [id number] Intramuscular Left Deltoid 05/26/2010 02/22/2010 999 Influenza 05/15/2012 sanofi pasteur PMC Fluzone [id number] Intramuscular Right Deltoid 05/15/2012 01/15/2012 141 Pneumococcal 05/15/2012 Merck & Co., Inc. MSD Pneumovax 23 [id number] Intramuscular Left Deltoid 05/15/2012 02/21/2008 33 History of Past Illness Name Date of Onset Comments Back Muscle Spasm Jul 20 2009 10:11AM Gastroesophageal Reflux Jul 20 2009 10:11AM Obesity Jul 20 2009 10:11AM Arthritis unspecified Headache Hypertension Depression and anxiety Hyperlipidemia Labyrinthitis 12/31/2013 Flu May 26 2010 8:31AM Depressive Disorder Jan 11 2011 11:18AM Essential Hypertension Jan 19 2011 9:16AM Headache Jan 19 2011 9:16AM Anxiety Disorder Jan 19 2011 9:16AM Depressive Disorder Jan 19 2011 9:16AM Essential Hypertension Mar 14 2011 10:28AM Osteoarthrosis, generalized, multiple sites Mar 14 2011 10:28AM Depressive Disorder Mar 14 2011 10:28AM Essential Hypertension Jun 20 2011 10:35AM Anxiety [...] Depression and anxiety Nov 17 2013 10:12AM ad terminal makeup operator medication use Nov 17 2013 10:12AM Eustachian Tube Dysfunction Nov 17 2013 10:07AM Hypertension Nov 17 2013 10:07AM Hyperlipidemia Nov 17 2013 10:07AM Seasonal Allergies Dec 30 2013 3:17PM Labyrinthitis Dec 30 2013 3:17PM Eustachian Tube Dysfunction Jan 21 2014 9:10AM Seasonal Allergies Jan 21 2014 9:10AM Post-nasal drainage Jan 21 2014 9:10AM Hypertension May 18 2014 9:16AM Hyperlipidemia May 18 2014 9:16AM ad terminal makeup operator use of drug May 18 2014 9:16AM Eustachian Tube Dysfunction May 18 2014 9:12AM Hypertension May 18 2014 9:12AM Arthritis unspecified May 18 2014 9:12AM Hyperlipidemia May 18 2014 9:12AM Depression and anxiety May 18 2014 9:12AM Hearing loss May 18 2014 9:12AM Foot pain, right Nov 05 2014 2:50PM Hypertension Nov 26 2014 10:51AM Hyperlipidemia Nov 26 2014 10:51AM ad terminal makeup operator use of drug Nov 26 2014 10:51AM Payers Insurance Name Company Name Plan Name Plan Number Policy Number Policy Group Number Start Date Medicare Part A Medicare Part A [id number] N/A [employer]uran [id number] N/A [employer] [facility] [id number] N/A [employer] [id number] N/A History of Encounters Visit Date Visit Type Provider 11/26/2014 Office visit JO JUAREZ 11/05/2014 Office visit JO JUAREZ 05/18/2014 Office visit JO JUAREZ 01/21/2014 Office visit JO JUAREZ 12/30/2013 Office visit JO JUAREZ 11/17/2013 Office visit JO JUAREZ 02/05/2013 Office visit JO JUAREZ 01/07/2013 Office visit JO JUAREZ 12/24/2012 Office visit JO JUAREZ 06/20/2012 Office visit JO JUAREZ 05/15/2012 Office visit JO JUAREZ 02/01/2012 Office visit JO JUAREZ 11/30/2011 Office visit JO JUAREZ 11/09/2011 Office visit JO JUAREZ 08/25/2011 Office visit JO JUAREZ 07/28/2011 Office visit JO JUAREZ 06/20/2011 Office visit JO JUAREZ 03/14/2011 Office visit Jo JUAREZ-C 02/06/2011 Office visit Jo JUAREZ-C 01/19/2011 Office visit Jo JUAREZ-C 01/11/2011 Office visit Jo JUAREZ-C 05/26/2010 Nurse visit Jo MONZONC 07/20/2009 Office visit Jo JUAREZ-C 05/19/2009 Nurse visit Jo Mendez PA-C
--- OUTSIDE RECORDS SUMMARY | 2018-03-15 09:44 | XMS REPORT ---
Author Author WALLY VILLA [facility] Address [address] [place], [place] [id number] Care Team Providers Care Internal Medicine Nurse Name Role Phone WALLY VILLA PCP Unavailable Allergies and Adverse Reactions Name Reaction Notes SULFA (SULFONAMIDES) PENICILLINS Plan of Treatment Planned Activity Comments Planned Date Planned Time Plan/Goal THER/PROPH/DIAG INJ SC/IM 12/24/2012 12:00 AM Medications Active Name Start Date Estimated Completion Date SIG Comments Flonase 50 mcg/actuation nasal spray,suspension 05/18/2014 inhale 1 spray by nasal route 2 times a day tramadol 50 mg oral tablet 11/05/2014 take 1 tablet by oral route 4 times a day as needed lisinopril-hydrochlorothiazide 10-12.5 mg oral tablet 05/25/2015 TAKE 1 TABLET DAILY -THANK YOU. lovastatin 20 mg oral tablet 05/25/2015 11/21/2015 take 1 tablet (20 mg) by oral route once daily with the evening meal for 30 days fluticasone 50 mcg/actuation nasal spray,suspension 05/31/2015 INHALE 1 SPRAY BY NASAL ROUTE 2 TIMES A DAY Name Start Date Expiration Date SIG Comments [...] 05/16/2015 TAKE 1 TABLET DAILY -THANK YOU. Discontinued Name Start Date Discontinued Date SIG Comments Celexa 20 mg oral tablet 01/11/2011 05/25/2015 take 1 tablet (20 mg) by oral route once daily Suphedrine 30 mg oral tablet 12/30/2013 05/25/2015 take1- 2 tablets every 4 hours as needed for dizziness Problem List Description Status Onset Hypertension Active Headache Active Arthritis unspecified Active Hyperlipidemia Active Labyrinthitis Active 12/31/2013 Primary osteoarthritis involving multiple joints Active 05/26/2015 Type 2 diabetes mellitus without complication DIET controlled Active 2014 Mixed hyperlipidemia Active 05/26/2015 Vital Signs Date Time BP-Sys(mm[Hg] BP-Naye(mm[Hg]) HR(bpm) RR(rpm) Temp WT HT HC BMI BSA BMI Percentile O2 Sat(%) 11/15/2015 1:28:00 PM 108 mmHg 60 mmHg 56 bpm 16 rpm 97.4 F 187 lbs 64 in 32.10 kg/m2 1.96 m2 97 % 05/25/2015 10:28:00 AM 110 mmHg 60 mmHg 64 bpm 16 rpm 97.8 F 178 lbs 64 in 30.5533 kg/m 1.9094 m 98 % 11/05/2014 2:49:00 PM 110 mmHg [...] AM COMPLETE CBC W/AUTO DIFF WBC Returned 05/25/2015 12:00 AM COMPREHEN METABOLIC PANEL Returned 05/25/2015 12:00 AM LIPID PANEL Returned 05/25/2015 12:00 AM ROUTINE VENIPUNCTURE Reviewed 07/28/2011 12:00 AM THER/PROPH/DIAG INJ SC/IM Reviewed 07/28/2011 12:00 AM Decadron Inj.1mg-([facility] #[id number] Reviewed 07/28/2011 12:00 AM Depo-Medrol 80 Mg Im/[facility] [id number] Reviewed 08/25/2011 12:00 AM ROUTINE VENIPUNCTURE Reviewed 08/25/2011 12:00 AM COMPLETE CBC W/AUTO DIFF WBC Returned 08/25/2011 12:00 AM COMPREHEN METABOLIC PANEL Returned 08/25/2011 12:00 AM LIPID PANEL Returned 11/30/2011 12:00 AM ROUTINE VENIPUNCTURE Reviewed 11/30/2011 12:00 AM LIPID PANEL Returned 05/15/2012 11:24 AM Flu Injection 3 Years And Above [facility]# [address]-95 [facility] Reviewed 05/15/2012 12:00 AM Pneumovax Injection - [facility] Reviewed 06/20/2012 12:00 AM THER/PROPH/DIAG INJ SC/IM Reviewed 06/20/2012 12:00 AM Decadron, Per 1 Mg [facility]# [address]-24 Reviewed 06/20/2012 12:00 AM Depo-Medrol, Per 80 Mg [facility]#0795-3441-59 Reviewed 02/05/2013 12:00 AM THER/PROPH/DIAG INJ SC/IM Reviewed 02/05/2013 12:00 AM Decadron, Per 1 Mg [facility]# [address]-75 Reviewed 02/05/2013 12:00 AM Depo-Medrol, Per 80 Mg [facility]#1146-1185-29 Reviewed 02/05/2013 12:00 AM ROUTINE VENIPUNCTURE Reviewed [...] 12/30/2013 12:00 AM Decadron, Per 1 Mg [facility]# [address]-46 Reviewed 05/18/2014 12:00 AM COMPLETE CBC W/AUTO DIFF WBC Returned 05/18/2014 12:00 AM COMPREHEN METABOLIC PANEL Returned 05/18/2014 12:00 AM LIPID PANEL Returned 05/18/2014 12:00 AM ROUTINE VENIPUNCTURE Reviewed 11/05/2014 12:00 AM THER/PROPH/DIAG INJ SC/IM Reviewed 11/05/2014 12:00 AM Decadron, Per 1 Mg [facility]# [address]-73 Reviewed 11/05/2014 12:00 AM Depo-Medrol, Per 80 Mg [facility]#5448-9768-15 Reviewed 11/05/2014 12:00 AM Toradol 60 Mg [facility]#5503-7075-66 Reviewed 11/26/2014 12:00 AM COMPLETE CBC W/AUTO DIFF WBC Returned 11/26/2014 12:00 AM COMPREHEN METABOLIC PANEL Returned 11/26/2014 12:00 AM LIPID PANEL Returned 11/26/2014 12:00 AM ROUTINE VENIPUNCTURE Reviewed 01/19/2011 12:00 AM THER/PROPH/DIAG INJ SC/IM Reviewed 01/19/2011 12:00 AM Nubain 10mg Reviewed 01/19/2011 12:00 AM Phenergan 50 Mg Im [id number] Reviewed Results Summary Data and Description Results [...] BILI 0.50 mg/dLCALCIUM 9.70 mg/dLeGFR >60 mL/min/1.73 [id number] 186.0 mg/dLCHOLESTEROL 275.0 mg/dLHDL 55.0 mg/dLLDL (CALC) [...] g/dLTOTAL BILI 0.80 mg/dLCALCIUM 9.90 mg/dLeGFR 60 11/26/2014 3:25 PM TRIGLYCERIDES 122.0 mg/dLCHOLESTEROL 202.0 mg/dLHDL 53.0 mg/ dLLDL (CALC) 125.0 mg/dLGLUCOSE 91.0 mg/dLSODIUM 143.0 mmol/LPOTASSIUM 3.80 mmol /LCHLORIDE 100.0 mmol/LCO2 29.0 mmol/LBUN 12.0 mg/dLCREATININE 0.80 mg/dLSGOT/ AST 19.0 IU/LSGPT/ALT 17.0 IU/LALK PHOS 81.0 IU/LTOTAL PROTEIN 7.40 g/dLALBUMIN 4.40 g/dLTOTAL BILI 0.90 mg/dLCALCIUM 10.20 mg/dLeGFR >60 mL/min/1.73 m2WBC 7.2 RBC 4.44 HGB 13.60 g/dLHCT 40.90 %MCV 92.0 fLMCH 30.60 pgMCHC 33.30 g/dLRDW CV 13.40 %MPV 9.40 fLPLT 290 %NEUT 67.50 %%LYMP 24.80 %%MONO 6.50 %%EOS 0.80 %% BASO 0.40 %#NEUT 4.86 #LYMP 1.79 #MONO 0.47 #EOS 0.06 #BASO 0.03 05/25/2015 4:20 PM WBC 7.0 RBC 4.50 HGB 13.60 g/dLHCT 41.70 %MCV 93.0 fLMCH 30.20 pgMCHC 32.60 g/dLRDW CV 13.80 %MPV 9.30 fLPLT 286 %NEUT 68.90 %%LYMP 23.80 %%MONO 5.90 %%EOS 0.40 %%BASO 1.0 %#NEUT 4.80 #LYMP 1.66 #MONO 0.41 #EOS 0.03 #BASO 0.07 GLUCOSE 107.0 mg/dLSODIUM 140.0 mmol/LPOTASSIUM 3.60 mmol/ LCHLORIDE 101.0 mmol/LCO2 28.0 mmol/LBUN 11.0 mg/dLCREATININE 0.80 mg/dLSGOT/ AST 22.0 IU/LSGPT/ALT 17.0 IU/LALK PHOS 85.0 IU/LTOTAL PROTEIN 7.20 g/dLALBUMIN 4.40 g/dLTOTAL BILI 0.70 mg/dLCALCIUM 10.10 mg/dLeGFR >60 mL/min/1.73m TRIGLYCERIDES 142.0 mg/dLCHOLESTEROL 212.0 mg/dLHDL 53.0 mg/dLLDL (CALC) 131.0 mg/dL History Of Immunizations Name Date Admin Mfg Name Mfg Code Trade Name Lot# Route Inj Vis Given Vis Pub CVX Influenza 05/26/2010 sanImpulseSave pasteur PMC Fluzone [id number] Intramuscular Left Deltoid 05/26/2010 02/22/2010 999 Influenza 05/15/2012 sanofi pasteur PMC Fluzone [id number] Intramuscular Right Deltoid 05/15/2012 01/15/2012 141 X 05/15/2012 Merck & Co[employer] Inc. MSD Pneumovax [...] complication DIET controlled 05/26/2015 Mixed hyperlipidemia 05/26/2015 Depressive Disorder Jan 11 2011 11:18AM Essential [...] Depression and anxiety Nov 17 2013 10:12AM senior care medication use Nov 17 2013 10:12AM Eustachian Tube Dysfunction Nov 17 2013 10:07AM Hypertension Nov 17 2013 10:07AM Hyperlipidemia Nov 17 2013 10:07AM Seasonal Allergies Dec 30 2013 3:17PM Labyrinthitis Dec 30 2013 3:17PM Eustachian Tube Dysfunction Jan 21 2014 9:10AM Seasonal Allergies Jan 21 2014 9:10AM Post-nasal drainage Jan 21 2014 9:10AM Hypertension May 18 2014 9:16AM Hyperlipidemia May 18 2014 9:16AM 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 9:16AM Eustachian Tube Dysfunction May 18 2014 9:12AM Hypertension May 18 2014 9:12AM Arthritis unspecified May 18 2014 9:12AM Hyperlipidemia May 18 2014 9:12AM Depression and anxiety May 18 2014 9:12AM Hearing loss May 18 2014 9:12AM Foot pain, right Nov 05 2014 2:50PM Hypertension Nov 26 2014 10:51AM Hyperlipidemia Nov 26 2014 10:51AM senior care use of drug Nov 26 2014 10:51AM Hypertension May 25 2015 11:53AM Hyperlipidemia May 25 2015 11:53AM 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 [facility] [employer] [id number] N/A History of Encounters Visit Date Visit Type Provider 11/15/2015 Office visit WALLY VILLA PA 05/25/2015 [...]
--- OUTSIDE RECORDS SUMMARY | 2018-03-15 09:45 | XMS REPORT ---
Author Author WALLY VILLA [facility] Address [address] [place], [place] [address] Care Team Providers Care Clinical Data Analyst Name Role Phone WALLY VILLA PCP Allergies and Adverse Reactions Name Reaction Notes SULFA (SULFONAMIDES) PENICILLINS Plan of Treatment Planned Activity Comments Planned Date Planned Time Plan/Goal CBC with Differential 09/14/2017 12:00 AM CMP 09/14/2017 12:00 AM Lipid Blood Profile 09/14/2017 12:00 AM *Injection,Subcutaneous/Intramuscul 12/24/2012 12:00 AM Medications Active Name Start Date Estimated Completion Date SIG Comments fluticasone 50 mcg/actuation nasal spray,suspension 05/31/2015 INHALE 1 SPRAY BY NASAL ROUTE 2 TIMES A DAY fluticasone 50 mcg/actuation nasal spray,suspension 06/13/2016 INHALE 1 SPRAY BY NASAL ROUTE 2 TIMES A DAY lisinopril-hydrochlorothiazide 10-12.5 mg oral tablet 02/26/2017 TAKE 1 TABLET DAILY -THANK YOU. memantine 10 mg oral tablet 09/14/2017 12/13/2017 take 1 tablet (10 mg) by oral [...] route 4 times a day as needed Aricept 10 mg oral tablet 05/18/2016 09/15/2017 take 1 tablet (10 mg) by oral route once daily in the evening for 30 days Problem List Description Status [...] HC BMI BSA BMI Percentile O2 Sat(%) 09/14/2017 10:53:00 AM 118 mmHg 74 mmHg [...] rpm 97.3 F 180 lbs 64 in 30.8966 kg/m 1.9201 m 97 % 11/15/2015 1:28:00 PM 108 mmHg [...] SC/IM Reviewed 07/28/2011 12:00 AM Decadron Inj.1mg-([facility] #[id number] Reviewed 07/28/2011 12:00 AM Depo-Medrol 80 Mg Im/[facility] [id number] Reviewed 08/25/2011 12:00 AM ROUTINE VENIPUNCTURE Reviewed [...] AM Flu Injection 3 Years And Above [facility]# [address]-99 [facility] Reviewed 05/15/2012 12:00 AM Pneumovax Injection - [facility] Reviewed 06/20/2012 12:00 AM THER/PROPH/DIAG INJ SC/IM Reviewed 06/20/2012 12:00 AM Decadron, Per 1 Mg [facility]# [address]-34 Reviewed 06/20/2012 12:00 AM Depo-Medrol, Per 80 Mg [facility]#5160-7590-78 Reviewed 09/14/2017 12:00 AM ROUTINE VENIPUNCTURE Reviewed 02/05/2013 12:00 AM THER/PROPH/DIAG INJ SC/IM Reviewed 02/05/2013 12:00 AM Decadron, Per 1 Mg [facility]# [address]-13 Reviewed 02/05/2013 12:00 AM Depo-Medrol, Per 80 Mg [facility]#6096-6060-02 Reviewed 02/05/2013 12:00 AM ROUTINE VENIPUNCTURE Reviewed [...] 12/30/2013 12:00 AM Decadron, Per 1 Mg [facility]# [address]-12 Reviewed 05/18/2014 12:00 AM COMPLETE CBC W/AUTO DIFF WBC Reviewed 05/18/2014 12:00 AM COMPREHEN METABOLIC PANEL Reviewed 05/18/2014 12:00 AM LIPID PANEL Reviewed 05/18/2014 12:00 AM ROUTINE VENIPUNCTURE Reviewed 11/05/2014 12:00 AM THER/PROPH/DIAG INJ SC/IM Reviewed 11/05/2014 12:00 AM Decadron, Per 1 Mg [facility]# [address]-39 Reviewed 11/05/2014 12:00 AM Depo-Medrol, Per 80 Mg [facility]#5592-1685-46 Reviewed 11/05/2014 12:00 AM Toradol 60 Mg [facility]#4545-1284-12 Reviewed 11/26/2014 12:00 AM COMPLETE CBC W/AUTO DIFF WBC Reviewed 11/26/2014 12:00 AM COMPREHEN METABOLIC PANEL Reviewed 11/26/2014 12:00 AM LIPID PANEL Reviewed 11/26/2014 12:00 AM ROUTINE VENIPUNCTURE Reviewed 01/19/2011 12:00 AM THER/PROPH/DIAG INJ SC/IM Reviewed 01/19/2011 12:00 AM Nubain 10mg Reviewed 01/19/2011 12:00 AM Phenergan 50 Mg Im [id number] Reviewed Results Summary Date and Description Results [...] trace History Of Immunizations Name Date Admin [facility] Name [facility] Code Trade Name Lot# Route Inj Vis Given Vis Pub CVX Influenza 05/26/2010 sanofi pasteur PMC Fluzone [id number] Intramuscular Left Deltoid 05/26/2010 02/22/2010 999 Influenza 05/15/2012 sanofi pasteur PMC Fluzone [id number] Intramuscular Right Deltoid 05/15/2012 01/15/2012 141 X 05/15/2012 Merck & Co., Inc. 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 Nov 17 2013 10:12AM Eustachian Tube Dysfunction Nov 17 2013 10:07AM Hypertension Nov 17 2013 10:07AM Hyperlipidemia Nov 17 2013 10:07AM Seasonal Allergies Dec 30 2013 3:17PM Labyrinthitis Dec 30 2013 3:17PM Eustachian Tube Dysfunction Jan 21 2014 9:10AM Seasonal Allergies Jan 21 2014 9:10AM Post-nasal drainage Jan 21 2014 9:10AM Hypertension May 18 2014 9:16AM Hyperlipidemia May 18 2014 9:16AM 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 May 18 2014 9:16AM Eustachian Tube Dysfunction May 18 2014 9:12AM Hypertension May 18 2014 9:12AM Arthritis unspecified May 18 2014 9:12AM Hyperlipidemia May 18 2014 9:12AM Depression and anxiety May 18 2014 9:12AM Hearing loss May 18 2014 9:12AM Foot pain, right Nov 05 2014 2:50PM Hypertension Nov 26 2014 10:51AM Hyperlipidemia Nov 26 2014 10:51AM senior living use of drug Nov 26 2014 10:51AM Hypertension May 25 2015 11:53AM Hyperlipidemia May 25 2015 11:53AM senior living use of drug May 25 2015 11:53AM [...] 2016 10:57AM Hyperlipidemia May 18 2016 10:57AM senior living use of drug May 18 2016 10:57AM Mild Acute Memory loss of unknown cause May 18 2016 11:29AM Acute cystitis with hematuria Jun 15 2016 2:30PM Moderate Chronic Stress incontinence, female Jun 15 2016 2:30PM Actinic keratoses Aug 04 2016 11:39AM Hypertension Sep 14 2017 8:39AM Hyperlipidemia Sep 14 2017 8:39AM senior living use of drug Sep 14 2017 8:39AM Mixed hyperlipidemia Sep 14 2017 10:53AM Primary osteoarthritis involving multiple joints Sep 14 2017 10:53AM Type 2 diabetes mellitus without complication DIET controlled Sep 14 2017 10: 53AM Essential hypertension Sep 14 2017 10:53AM Senile dementia without behavioral disturbance Sep 14 2017 10:53AM Mild episode of recurrent major depressive disorder Sep 14 2017 10:53AM Payers Insurance Name Company Name Plan Name Plan Number Policy Number Policy Group Number Start Date Medicare C Medicare C [id number] N/A [employer] [id number] Friday, 2010 BCBS [employer] [place] [id number] N/A Medicare Part A Medicare Part A [id number] N/A [employer] [id number] N/A [employer] Insuran [id number] N/A Medicare Part A Medicare - Lab/Xray [id number] N/A History of Encounters Visit Date Visit Type Provider 09/14/2017 Office visit WALLY JUAREZ 08/04/2016 Office visit WALLY JUAREZ 06/15/2016 Office visit WALLY JUAREZ 05/18/2016 Office visit WALLY JUAREZ 11/29/2015 Office visit WALLY JUAREZ 11/15/2015 Office visit WALLY JUAREZ 05/25/2015 Office visit WALLY JUAREZ 11/26/2014 Office visit WALLY JUAREZ 11/05/2014 Office visit 11/05/2014 Office visit WALLY JUAREZ 05/18/2014 Office visit WALLY JUAREZ 01/21/2014 Office visit WALLY JUAREZ 12/30/2013 Office visit WALLY JUAREZ 11/17/2013 Office visit WALYL JUAREZ 02/05/2013 Office visit WALLY JUAREZ 01/07/2013 Office visit WALLY JUAREZ 12/24/2012 Office visit WALLY JUAREZ 06/20/2012 Office visit WALLY JUAREZ 05/15/2012 Office visit WALLY JUAREZ 02/01/2012 Office visit WALLY JUAREZ 11/30/2011 Office visit WALLY JUAREZ 11/09/2011 Office visit WALLY JUAREZ 08/25/2011 Office visit WALLY JUAREZ 07/28/2011 Office visit WALLY JUAREZ 06/20/2011 Office visit WALLY JUAREZ 03/14/2011 Office visit Wally JUAREZ-C 02/06/2011 Office visit Wally MONZONC 01/19/2011 Office visit Wally MONZONC 01/11/2011 Office visit Wally MONZONC 05/26/2010 Nurse visit Wally MONZONC 07/20/2009 Office visit Wally MONZONC 05/19/2009 Nurse visit Wally Villa PA-C
--- OUTSIDE RECORDS SUMMARY | 2018-03-15 09:46 | XMS REPORT ---
Author Author WALLY VILLA [facility] Address [address] [place], [place] [id number] Care Team Providers Care Board Worker Name Role Phone WALLY VILLA PCP Unavailable [...] A DAY lisinopril-hydrochlorothiazide 10-12.5 mg oral tablet 05/15/2016 TAKE 1 TABLET DAILY -THANK YOU. lovastatin 20 mg oral tablet 05/15/2016 06/14/2016 take 1 tablet (20 mg) by oral route once daily with the evening meal for 30 days Aricept 10 mg oral tablet 05/18/2016 08/16/2016 take 1 tablet (10 mg) by oral route once daily in the evening for 30 days Name Start Date Expiration [...] Memory loss of unknown cause Active 05/21/2016 Vital Signs Date Time BP-Sys(mm[Hg] BP-Naye(mm[Hg]) HR(bpm) RR(rpm) Temp WT HT HC BMI BSA BMI Percentile O2 Sat(%) 05/18/2016 11:29:00 AM 130 mmHg 82 mmHg [...] mmHg 86 bpm 222 lbs 64 in 38.1058 kg/m 2.1324 m 98 % 07/28/2011 10:28:00 AM 118 mmHg 74 mmHg 74 bpm 221 lbs 64 in 37.93 kg/m2 2.13 m2 96 % 06/20/2011 10:34:00 AM 124 mmHg 78 mmHg 76 bpm 223 lbs 64 in 38.2775 kg/m 2.1372 m 03/14/2011 10:30:00 AM 116 mmHg 70 mmHg [...] Returned 05/25/2015 12:00 AM ROUTINE VENIPUNCTURE Reviewed 11/15/2015 12:00 AM REMOVE IMPACTED EAR WAX UNI Reviewed 11/29/2015 12:00 AM REMOVE IMPACTED EAR WAX UNI Reviewed 07/28/2011 12:00 AM THER/PROPH/DIAG INJ SC/IM Reviewed 07/28/2011 12:00 AM Decadron Inj.1mg-([facility] #[id number] Reviewed 07/28/2011 12:00 AM Depo-Medrol 80 Mg Im/[facility] [id number] Reviewed 08/25/2011 12:00 AM ROUTINE VENIPUNCTURE Reviewed 08/25/2011 12:00 AM COMPLETE CBC W/AUTO DIFF WBC Returned 08/25/2011 12:00 AM COMPREHEN METABOLIC PANEL Returned 08/25/2011 12:00 AM LIPID PANEL Returned 05/18/2016 12:00 AM COMPLETE CBC W/AUTO DIFF WBC Returned 05/18/2016 12:00 AM COMPREHEN METABOLIC PANEL Returned 05/18/2016 12:00 AM LIPID PANEL Returned 05/18/2016 12:00 AM ROUTINE VENIPUNCTURE Reviewed 11/30/2011 12:00 AM ROUTINE VENIPUNCTURE Reviewed 11/30/2011 12:00 AM LIPID PANEL Returned 05/15/2012 11:24 AM Flu Injection 3 Years And Above [facility]# [address]-61 [facility] Reviewed 05/15/2012 12:00 AM Pneumovax Injection - C Reviewed 06/20/2012 12:00 AM THER/PROPH/DIAG INJ SC/IM Reviewed 06/20/2012 12:00 AM Decadron, Per 1 Mg [facility]# [address]-96 Reviewed 06/20/2012 12:00 AM Depo-Medrol, Per 80 Mg [facility]#6067-9583-67 Reviewed 02/05/2013 12:00 AM THER/PROPH/DIAG INJ SC/IM Reviewed 02/05/2013 12:00 AM Decadron, Per 1 Mg [facility]# [address]-59 Reviewed 02/05/2013 12:00 AM Depo-Medrol, Per 80 Mg [facility]#3800-7271-47 Reviewed 02/05/2013 12:00 AM ROUTINE VENIPUNCTURE Reviewed [...] 12/30/2013 12:00 AM Decadron, Per 1 Mg [facility]# [address]-16 Reviewed 05/18/2014 12:00 AM COMPLETE CBC W/AUTO DIFF WBC Returned 05/18/2014 12:00 AM COMPREHEN METABOLIC PANEL Returned 05/18/2014 12:00 AM LIPID PANEL Returned 05/18/2014 12:00 AM ROUTINE VENIPUNCTURE Reviewed 11/05/2014 12:00 AM THER/PROPH/DIAG INJ SC/IM Reviewed 11/05/2014 12:00 AM Decadron, Per 1 Mg [facility]# [address]-88 Reviewed 11/05/2014 12:00 AM Depo-Medrol, Per 80 Mg [facility]#6372-2068-23 Reviewed 11/05/2014 12:00 AM Toradol 60 Mg [facility]#8975-3157-97 Reviewed 11/26/2014 12:00 AM COMPLETE CBC W/AUTO DIFF WBC Returned 11/26/2014 12:00 AM COMPREHEN METABOLIC PANEL Returned 11/26/2014 12:00 AM LIPID PANEL Returned 11/26/2014 12:00 AM ROUTINE VENIPUNCTURE Reviewed 01/19/2011 12:00 AM THER/PROPH/DIAG INJ SC/IM Reviewed 01/19/2011 12:00 AM Nubain 10mg Reviewed 01/19/2011 12:00 AM Phenergan 50 Mg Im [id number] Reviewed Results Summary Data and Description Results [...] CHOL/ HDL 4.0 LDL (CALC) 131.0 mg/dL History Of Immunizations Name Date Admin Mfg Name Mfg Code Trade Name Lot# Route Inj Vis Given Vis Pub CVX Influenza 05/26/2010 sanofi pasteur PMC Fluzone [id number] Intramuscular Left Deltoid 05/26/2010 02/22/2010 999 Influenza 05/15/2012 [facility] Fluzone [id number] Intramuscular Right Deltoid 05/15/2012 01/15/2012 141 X [...] 2014 9:16AM Hyperlipidemia May 18 2014 9:16AM senior care use of drug May 18 2014 9:16AM Eustachian Tube Dysfunction May 18 2014 9:12AM Hypertension May 18 2014 9:12AM Arthritis unspecified May 18 2014 9:12AM Hyperlipidemia May 18 2014 9:12AM Depression and anxiety May 18 2014 9:12AM Hearing loss May 18 2014 9:12AM Foot pain, right Nov 05 2014 2:50PM Hypertension Nov 26 2014 10:51AM Hyperlipidemia Nov 26 2014 10:51AM 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 Nov 26 2014 10:51AM Hypertension May 25 2015 11:53AM Hyperlipidemia May 25 2015 11:53AM senior care use of drug May 25 2015 11:53AM [...] 2016 10:57AM Hyperlipidemia May 18 2016 10:57AM 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 [facility] LIfe Ins Co [id number] N/A History of Encounters Visit Date Visit Type Provider 05/18/2016 Office visit WALLY VILLA PA 11/29/2015 [...]
--- OUTSIDE RECORDS SUMMARY | 2018-03-15 09:47 | XMS REPORT ---
Author Author WALLY VILLA [facility] Address [address] [place], [place] [address] Care Team Providers Care Senior Controller Name Role Phone WALLY VILLA PCP Unavailable Allergies and Adverse Reactions Name Reaction Notes SULFA (SULFONAMIDES) PENICILLINS Plan of Treatment Planned Activity Comments Planned Date Planned Time Plan/Goal COMPLETE CBC W/AUTO DIFF WBC 05/25/2015 12:00 AM COMPREHEN METABOLIC PANEL 05/25/2015 12:00 AM LIPID PANEL 05/25/2015 12:00 AM THER/PROPH/DIAG INJ SC/IM 12/24/2012 12:00 AM Medications [...] with the evening meal for 30 days Name Start Date Expiration [...] HC BMI BSA BMI Percentile O2 Sat(%) 05/25/2015 10:28:00 AM 110 mmHg 60 mmHg 64 bpm 16 rpm 97.8 F 178 lbs 98 % 11/05/2014 2:49:00 PM 110 mmHg [...] Ordered Description Order Status 05/25/2015 12:00 AM ROUTINE VENIPUNCTURE Reviewed 07/28/2011 12:00 AM THER/PROPH/DIAG INJ SC/IM Reviewed 07/28/2011 12:00 AM Decadron Inj.1mg-([facility]) [facility] #[id number] Reviewed 07/28/2011 12:00 AM Depo-Medrol 80 Mg Im/[facility] [id number] Reviewed 08/25/2011 12:00 AM ROUTINE VENIPUNCTURE Reviewed 08/25/2011 12:00 AM COMPLETE CBC W/AUTO DIFF WBC Returned 08/25/2011 12:00 AM COMPREHEN METABOLIC PANEL Returned 08/25/2011 12:00 AM LIPID PANEL Returned 11/30/2011 12:00 AM ROUTINE VENIPUNCTURE Reviewed 11/30/2011 12:00 AM LIPID PANEL Returned 05/15/2012 11:24 AM Flu Injection 3 Years And Above [facility]# [address]-90 RHC Reviewed 05/15/2012 12:00 AM Pneumovax Injection - [facility] Reviewed 06/20/2012 12:00 AM THER/PROPH/DIAG INJ SC/IM Reviewed 06/20/2012 12:00 AM Decadron, Per 1 Mg [facility]# [address]-45 Reviewed 06/20/2012 12:00 AM Depo-Medrol, Per 80 Mg [facility]#3018-6870-32 Reviewed 02/05/2013 12:00 AM THER/PROPH/DIAG INJ SC/IM Reviewed 02/05/2013 12:00 AM Decadron, Per 1 Mg [facility]# [address]-34 Reviewed 02/05/2013 12:00 AM Depo-Medrol, Per 80 Mg [facility]#1194-9738-49 Reviewed 02/05/2013 12:00 AM ROUTINE VENIPUNCTURE Reviewed [...] 12/30/2013 12:00 AM Decadron, Per 1 Mg [facility]# [address]-65 Reviewed 05/18/2014 12:00 AM COMPLETE CBC W/AUTO DIFF WBC Returned 05/18/2014 12:00 AM COMPREHEN METABOLIC PANEL Returned 05/18/2014 12:00 AM LIPID PANEL Returned 05/18/2014 12:00 AM ROUTINE VENIPUNCTURE Reviewed 11/05/2014 12:00 AM THER/PROPH/DIAG INJ SC/IM Reviewed 11/05/2014 12:00 AM Decadron, Per 1 Mg [facility]# [address]-80 Reviewed 11/05/2014 12:00 AM Depo-Medrol, Per 80 Mg [facility]#6580-7977-26 Reviewed 11/05/2014 12:00 AM Toradol 60 Mg [facility]#9286-4995-09 Reviewed 11/26/2014 12:00 AM COMPLETE CBC W/AUTO DIFF WBC Returned 11/26/2014 12:00 AM COMPREHEN METABOLIC PANEL Returned 11/26/2014 12:00 AM LIPID PANEL Returned 11/26/2014 12:00 AM ROUTINE VENIPUNCTURE Reviewed 01/19/2011 12:00 AM THER/PROPH/DIAG INJ SC/IM Reviewed 01/19/2011 12:00 AM Nubain 10mg Reviewed 01/19/2011 12:00 AM Phenergan 50 Mg Im [id number] Reviewed Results Summary Data and Description Results [...] BILI 0.50 mg/dLCALCIUM 9.70 mg/dLeGFR >60 mL/min/1.73 [id number] 186.0 mg/dLCHOLESTEROL 275.0 mg/dLHDL 55.0 mg/dLLDL (CALC) [...] 1.79 #MONO 0.47 #EOS 0.06 #BASO 0.03 History Of Immunizations Name Date Admin Mfg Name Mfg Code Trade Name Lot# Route Inj Vis Given Vis Pub CVX Influenza 05/26/2010 sanTrendyta PMC Fluzone [id number] Intramuscular Left Deltoid 05/26/2010 02/22/2010 999 Influenza 05/15/2012 [employer]Trendyta PMC Fluzone [id number] Intramuscular Right Deltoid 05/15/2012 01/15/2012 141 Pneumococcal [...] Depression and anxiety Nov 17 2013 10:12AM skilled nursing medication use Nov 17 2013 10:12AM Eustachian Tube Dysfunction Nov 17 2013 10:07AM Hypertension Nov 17 2013 10:07AM Hyperlipidemia Nov 17 2013 10:07AM Seasonal Allergies Dec 30 2013 3:17PM Labyrinthitis Dec 30 2013 3:17PM Eustachian Tube Dysfunction Jan 21 2014 9:10AM Seasonal Allergies Jan 21 2014 9:10AM Post-nasal drainage Jan 21 2014 9:10AM Hypertension May 18 2014 9:16AM Hyperlipidemia May 18 2014 9:16AM skilled nursing use of drug May 18 2014 9:16AM Eustachian Tube Dysfunction May 18 2014 9:12AM Hypertension May 18 2014 9:12AM Arthritis unspecified May 18 2014 9:12AM Hyperlipidemia May 18 2014 9:12AM Depression and anxiety May 18 2014 9:12AM Hearing loss May 18 2014 9:12AM Foot pain, right Nov 05 2014 2:50PM Hypertension Nov 26 2014 10:51AM Hyperlipidemia Nov 26 2014 10:51AM 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 Co. [facility] Co [id number] N/A History of Encounters Visit Date Visit Type Provider 05/25/2015 Office visit WALLY VILLA PA 11/26/2014 Office visit WALLY VILLA PA 11/05/2014 Office visit WALLY VILLA PA 05/18/2014 [...]
--- OUTSIDE RECORDS SUMMARY | 2018-03-15 09:47 | XMS REPORT ---
Author Author WALLY VILLA [facility] Address [address] [place], [place] [address] Care Team Providers Care Merchandiser Seasonal Name Role Phone WALLY VILLA PCP Unavailable [...] 05/25/2015 TAKE 1 TABLET DAILY -THANK YOU. fluticasone 50 mcg/actuation nasal spray,suspension 05/31/2015 INHALE [...] with the evening meal for 30 days Discontinued Name Start Date Discontinued Date [...] SC/IM Reviewed 07/28/2011 12:00 AM Decadron Inj.1mg-([facility] #[id number] Reviewed 07/28/2011 12:00 AM Depo-Medrol 80 Mg Im/[facility] [id number] Reviewed 08/25/2011 12:00 AM ROUTINE VENIPUNCTURE Reviewed 08/25/2011 12:00 AM COMPLETE CBC W/AUTO DIFF WBC Returned 08/25/2011 12:00 AM COMPREHEN METABOLIC PANEL Returned 08/25/2011 12:00 AM LIPID PANEL Returned 11/30/2011 12:00 AM ROUTINE VENIPUNCTURE Reviewed 11/30/2011 12:00 AM LIPID PANEL Returned 05/15/2012 11:24 AM Flu Injection 3 Years And Above [facility]# [address]-98 C Reviewed 05/15/2012 12:00 AM Pneumovax Injection - [facility] Reviewed 06/20/2012 12:00 AM THER/PROPH/DIAG INJ SC/IM Reviewed 06/20/2012 12:00 AM Decadron, Per 1 Mg [facility]# [address]-07 Reviewed 06/20/2012 12:00 AM Depo-Medrol, Per 80 Mg [facility]#8818-9651-69 Reviewed 02/05/2013 12:00 AM THER/PROPH/DIAG INJ SC/IM Reviewed 02/05/2013 12:00 AM Decadron, Per 1 Mg [facility]# [address]-69 Reviewed 02/05/2013 12:00 AM Depo-Medrol, Per 80 Mg [facility]#9321-2922-89 Reviewed 02/05/2013 12:00 AM ROUTINE VENIPUNCTURE Reviewed [...] 12/30/2013 12:00 AM Decadron, Per 1 Mg [facility]# [address]-50 Reviewed 05/18/2014 12:00 AM COMPLETE CBC W/AUTO DIFF WBC Returned 05/18/2014 12:00 AM COMPREHEN METABOLIC PANEL Returned 05/18/2014 12:00 AM LIPID PANEL Returned 05/18/2014 12:00 AM ROUTINE VENIPUNCTURE Reviewed 11/05/2014 12:00 AM THER/PROPH/DIAG INJ SC/IM Reviewed 11/05/2014 12:00 AM Decadron, Per 1 Mg [facility]# [address]-28 Reviewed 11/05/2014 12:00 AM Depo-Medrol, Per 80 Mg [facility]#1642-8324-45 Reviewed 11/05/2014 12:00 AM Toradol 60 Mg [facility]#3444-3841-22 Reviewed 11/26/2014 12:00 AM COMPLETE CBC W/AUTO DIFF WBC Returned 11/26/2014 12:00 AM COMPREHEN METABOLIC PANEL Returned 11/26/2014 12:00 AM LIPID PANEL Returned 11/26/2014 12:00 AM ROUTINE VENIPUNCTURE Reviewed 01/19/2011 12:00 AM THER/PROPH/DIAG INJ SC/IM Reviewed 01/19/2011 12:00 AM Nubain 10mg Reviewed 01/19/2011 12:00 AM Phenergan 50 Mg Im [id number] Reviewed Results Summary Data and Description Results [...] BILI 0.50 mg/dLCALCIUM 9.70 mg/dLeGFR >60 mL/min/1.73 [id number] 186.0 mg/dLCHOLESTEROL 275.0 mg/dLHDL 55.0 mg/dLLDL (CALC) [...] Vis Given Vis Pub CVX Influenza 05/26/2010 [facility] [facility] PMC Fluzone [id number] Intramuscular Left Deltoid 05/26/2010 02/22/2010 999 [facility]enza [facility]/15/2012 [facility] [id number] Intramuscular Right Deltoid 05/15/2012 01/15/2012 141 X [...] Depression and anxiety Nov 17 2013 10:12AM [facility] medication use Nov 17 2013 10:12AM Eustachian Tube Dysfunction Nov 17 2013 10:07AM Hypertension Nov 17 2013 10:07AM Hyperlipidemia Nov 17 2013 10:07AM Seasonal Allergies Dec 30 2013 3:17PM Labyrinthitis Dec 30 2013 3:17PM Eustachian Tube Dysfunction Jan 21 2014 9:10AM Seasonal Allergies Jan 21 2014 9:10AM Post-nasal drainage Jan 21 2014 9:10AM Hypertension May 18 2014 9:16AM Hyperlipidemia May 18 2014 9:16AM 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 May 18 2014 9:16AM Eustachian Tube Dysfunction May 18 2014 9:12AM Hypertension May 18 2014 9:12AM Arthritis unspecified May 18 2014 9:12AM Hyperlipidemia May 18 2014 9:12AM Depression and anxiety May 18 2014 9:12AM Hearing loss May 18 2014 9:12AM Foot pain, right Nov 05 2014 2:50PM Hypertension Nov 26 2014 10:51AM Hyperlipidemia Nov 26 2014 10:51AM [facility] use of drug Nov 26 2014 10:51AM Hypertension May 25 2015 11:53AM Hyperlipidemia May 25 2015 11:53AM 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 Co. [facility] Ins Co [id number] N/A History of Encounters Visit Date Visit [...]
--- OUTSIDE RECORDS SUMMARY | 2018-03-15 09:48 | XMS REPORT ---
Author Author WALLY VILLA [facility] Address [address] [place], [place] [address] Care Team Providers Care Cell Pourer Name Role Phone WALLY VILLA PCP Unavailable [...] 05/15/2016 TAKE 1 TABLET DAILY -THANK YOU. Aricept 10 mg oral tablet 05/18/2016 08/16/2016 take 1 tablet (10 mg) by oral route once daily in the evening for 30 days fluticasone 50 mcg/actuation nasal spray,suspension 06/13/2016 INHALE 1 SPRAY BY NASAL ROUTE 2 TIMES A DAY Macrodantin 50 mg oral capsule 06/15/2016 06/22/2016 take 1 capsule by oral route 3 times a day for 7 days Name Start Date Expiration Date SIG [...] HC BMI BSA BMI Percentile O2 Sat(%) 06/15/2016 2:29:00 PM 130 mmHg 62 mmHg [...] SC/IM Reviewed 07/28/2011 12:00 AM Decadron Inj.1mg-([facility]) [facility] #[id number] Reviewed 07/28/2011 12:00 AM Depo-Medrol 80 Mg Im/[facility] [id number] Reviewed 08/25/2011 12:00 AM ROUTINE VENIPUNCTURE Reviewed [...] Flu Injection 3 Years And Above [facility]# [address]-18 RHC Reviewed 05/15/2012 12:00 AM Pneumovax Injection - [facility] Reviewed 06/20/2012 12:00 AM THER/PROPH/DIAG INJ SC/IM Reviewed 06/20/2012 12:00 AM Decadron, Per 1 Mg [facility]# [address]-00 Reviewed 06/20/2012 12:00 AM Depo-Medrol, Per 80 Mg [facility]#7564-8982-82 Reviewed 02/05/2013 12:00 AM THER/PROPH/DIAG INJ SC/IM Reviewed 02/05/2013 12:00 AM Decadron, Per 1 Mg [facility]# [address]-85 Reviewed 02/05/2013 12:00 AM Depo-Medrol, Per 80 Mg [facility]#4920-0799-32 Reviewed 02/05/2013 12:00 AM ROUTINE VENIPUNCTURE Reviewed [...] 12/30/2013 12:00 AM Decadron, Per 1 Mg [facility]# [address]-73 Reviewed 05/18/2014 12:00 AM COMPLETE CBC W/AUTO DIFF WBC Reviewed 05/18/2014 12:00 AM COMPREHEN METABOLIC PANEL Reviewed 05/18/2014 12:00 AM LIPID PANEL Reviewed 05/18/2014 12:00 AM ROUTINE VENIPUNCTURE Reviewed 11/05/2014 12:00 AM THER/PROPH/DIAG INJ SC/IM Reviewed 11/05/2014 12:00 AM Decadron, Per 1 Mg [facility]# [address]-37 Reviewed 11/05/2014 12:00 AM Depo-Medrol, Per 80 Mg [facility]#1525-2394-03 Reviewed 11/05/2014 12:00 AM Toradol 60 Mg [facility]#6276-6170-81 Reviewed 11/26/2014 12:00 AM COMPLETE CBC W/AUTO DIFF WBC Reviewed 11/26/2014 12:00 AM COMPREHEN METABOLIC PANEL Reviewed 11/26/2014 12:00 AM LIPID PANEL Reviewed 11/26/2014 12:00 AM ROUTINE VENIPUNCTURE Reviewed 01/19/2011 12:00 AM THER/PROPH/DIAG INJ SC/IM Reviewed 01/19/2011 12:00 AM Nubain 10mg Reviewed 01/19/2011 12:00 AM Phenergan 50 Mg Im [id number] Reviewed Results Summary Data and Description Results [...] CHOL/ HDL 4.0 LDL (CALC) 131.0 mg/dL 05/18/2016 3:48 PM GLUCOSE 93.0 mg/dLSODIUM 142.0 mmol/LPOTASSIUM 3.30 mmol/ LCHLORIDE 101.0 mmol/LCO2 28.0 mmol/LBUN 17.0 mg/dLCREATININE 0.80 mg/dLSGOT/ AST 21.0 IU/LSGPT/ALT 15.0 IU/LALK PHOS 81.0 IU/LTOTAL PROTEIN 7.30 g/dLALBUMIN 4.40 g/dLTOTAL BILI 0.80 mg/dLCALCIUM 9.70 mg/dLAGE 70 GFR NonAA 71 GFR AA 86 eGFR >60 mL/min/1.73meGFR AA* >60 TRIGLYCERIDES 149.0 mg/dLCHOLESTEROL 205.0 mg/dLHDL 46.0 mg/dLTOT CHOL/HDL 4.5 LDL (CALC) 129.0 mg/dLWBC 6.3 RBC 4.44 HGB 13.50 g/dLHCT 42.10 %MCV 95.0 fLMCH 30.40 pgMCHC 32.10 g/dLRDW SD 45 RDW CV 12.90 %MPV 9.20 fLPLT 284 NRBC# 0.00 NRBC% 0.0 %NEUT 58.70 %%LYMP 32.50 %%MONO 6.20 %%EOS 1.10 %%BASO 1.30 %#NEUT 3.67 #LYMP 2.03 #MONO 0.39 #EOS 0.07 #BASO 0.08 MANUAL DIFF NOT IND 06/15/2016 2:32 PM Clarity Ur clear Color [...] CVX Influenza 05/26/2010 sanofi pasteur PMC Fluzone [id number] Intramuscular Left Deltoid 05/26/2010 02/22/2010 999 Influenza 05/15/2012 sanofi pasteur PMC Fluzone [id number] Intramuscular Right Deltoid 05/15/2012 01/15/2012 141 X [...] Depression and anxiety Nov 17 2013 10:12AM detention medication use Nov 17 2013 10:12AM Eustachian Tube Dysfunction Nov 17 2013 10:07AM Hypertension Nov 17 2013 10:07AM Hyperlipidemia Nov 17 2013 10:07AM Seasonal Allergies Dec 30 2013 3:17PM Labyrinthitis Dec 30 2013 3:17PM Eustachian Tube Dysfunction Jan 21 2014 9:10AM Seasonal Allergies Jan 21 2014 9:10AM Post-nasal drainage Jan 21 2014 9:10AM Hypertension May 18 2014 9:16AM Hyperlipidemia May 18 2014 9:16AM 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 May 18 2014 9:16AM Eustachian Tube Dysfunction May 18 2014 9:12AM Hypertension May 18 2014 9:12AM Arthritis unspecified May 18 2014 9:12AM Hyperlipidemia May 18 2014 9:12AM Depression and anxiety May 18 2014 9:12AM Hearing loss May 18 2014 9:12AM Foot pain, right Nov 05 2014 2:50PM Hypertension Nov 26 2014 10:51AM Hyperlipidemia Nov 26 2014 10:51AM 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 Nov 26 2014 10:51AM Hypertension May 25 2015 11:53AM Hyperlipidemia May 25 2015 11:53AM 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 May 25 2015 11:53AM [...] 2016 10:57AM Hyperlipidemia May 18 2016 10:57AM 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 Co. [place] [employer] Ins Co [id number] N/A History of Encounters Visit Date Visit Type Provider 06/15/2016 Office visit WALLY JUAREZ 05/18/2016 Office visit WALLY JUAREZ 11/29/2015 Office visit WALLY JUAREZ 11/15/2015 Office visit WALLY JUAREZ 05/25/2015 Office visit WALLY JUAREZ 11/26/2014 Office visit WALLY JUAREZ 11/05/2014 Office visit 11/05/2014 Office visit WALLY JUAREZ 05/18/2014 Office visit WALLY JUAREZ 01/21/2014 Office visit WALLY JUAREZ 12/30/2013 Office visit WALLY JUAREZ 11/17/2013 Office visit WALLY JUAREZ 02/05/2013 Office visit WALLY JUAREZ 01/07/2013 Office visit WALLY VILLA PA 12/24/2012 Office visit WALLY JUAREZ 06/20/2012 Office visit WALLY VILLA PA 05/15/2012 Office visit WALLY JUAREZ 02/01/2012 Office visit WALLY VILLA PA 11/30/2011 [...]
--- OUTSIDE RECORDS SUMMARY | 2018-03-15 09:49 | XMS REPORT ---
Author Author WALLY VILLA [facility] Address [address] [place], [place] [address] Care Team Providers Care Industrial Methods Consultant Name Role Phone WALLY VILLA PCP Unavailable [...] SC/IM Reviewed 07/28/2011 12:00 AM Decadron Inj.1mg-([facility]) [facility] #[id number] Reviewed 07/28/2011 12:00 AM Depo-Medrol 80 Mg Im/[facility] [id number] Reviewed 08/25/2011 12:00 AM ROUTINE VENIPUNCTURE Reviewed 08/25/2011 12:00 AM COMPLETE CBC W/AUTO DIFF WBC Returned 08/25/2011 12:00 AM COMPREHEN METABOLIC PANEL Returned 08/25/2011 12:00 AM LIPID PANEL Returned 11/30/2011 12:00 AM ROUTINE VENIPUNCTURE Reviewed 11/30/2011 12:00 AM LIPID PANEL Returned 05/15/2012 11:24 AM Flu Injection 3 Years And Above [facility]# [address]-45 RHC Reviewed 05/15/2012 12:00 AM Pneumovax Injection - [facility] Reviewed 06/20/2012 12:00 AM THER/PROPH/DIAG INJ SC/IM Reviewed 06/20/2012 12:00 AM Decadron, Per 1 Mg [facility]# [address]-97 Reviewed 06/20/2012 12:00 AM Depo-Medrol, Per 80 Mg [facility]#8882-4013-10 Reviewed 02/05/2013 12:00 AM THER/PROPH/DIAG INJ SC/IM Reviewed 02/05/2013 12:00 AM Decadron, Per 1 Mg [facility]# [address]-51 Reviewed 02/05/2013 12:00 AM Depo-Medrol, Per 80 Mg [facility]#3663-4075-79 Reviewed 02/05/2013 12:00 AM ROUTINE VENIPUNCTURE Reviewed [...] AM Decadron, Per 1 Mg [facility]# [address]-66 Reviewed 05/18/2014 12:00 AM COMPLETE CBC W/AUTO DIFF WBC Returned 05/18/2014 12:00 AM COMPREHEN METABOLIC PANEL Returned 05/18/2014 12:00 AM LIPID PANEL Returned 05/18/2014 12:00 AM ROUTINE VENIPUNCTURE Reviewed 11/05/2014 12:00 AM THER/PROPH/DIAG INJ SC/IM Reviewed 11/05/2014 12:00 AM Decadron, Per 1 Mg [facility]# [address]-42 Reviewed 11/05/2014 12:00 AM Depo-Medrol, Per 80 Mg [facility]#6433-0057-27 Reviewed 11/05/2014 12:00 AM Toradol 60 Mg [facility]#7977-2924-14 Reviewed 11/26/2014 12:00 AM COMPLETE CBC W/AUTO DIFF WBC Returned 11/26/2014 12:00 AM COMPREHEN METABOLIC PANEL Returned 11/26/2014 12:00 AM LIPID PANEL Returned 11/26/2014 12:00 AM ROUTINE VENIPUNCTURE Reviewed 01/19/2011 12:00 AM THER/PROPH/DIAG INJ SC/IM Reviewed 01/19/2011 12:00 AM Nubain 10mg Reviewed 01/19/2011 12:00 AM Phenergan 50 Mg Im [id number] Reviewed Results Summary Data and Description Results [...] BILI 0.50 mg/dLCALCIUM 9.70 mg/dLeGFR >60 mL/min/1.73 [id number] 186.0 mg/dLCHOLESTEROL 275.0 mg/dLHDL 55.0 mg/dLLDL (CALC) [...] Vis Given Vis Pub [facility] PMC Fluzone [id number] Intramuscular Left Deltoid 05/26/2010 02/22/2010 999 Influenza 05/15/2012 [facility] [id number] Intramuscular Right Deltoid 05/15/2012 01/15/2012 141 Pneumococcal [...] Depression and anxiety Nov 17 2013 10:12AM 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 Nov 17 2013 10:12AM Eustachian Tube Dysfunction Nov 17 2013 10:07AM Hypertension Nov 17 2013 10:07AM Hyperlipidemia Nov 17 2013 10:07AM Seasonal Allergies Dec 30 2013 3:17PM Labyrinthitis Dec 30 2013 3:17PM Eustachian Tube Dysfunction Jan 21 2014 9:10AM Seasonal Allergies Jan 21 2014 9:10AM Post-nasal drainage Jan 21 2014 9:10AM Hypertension May 18 2014 9:16AM Hyperlipidemia May 18 2014 9:16AM 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 May 18 2014 9:16AM Eustachian Tube Dysfunction May 18 2014 9:12AM Hypertension May 18 2014 9:12AM Arthritis unspecified May 18 2014 9:12AM Hyperlipidemia May 18 2014 9:12AM Depression and anxiety May 18 2014 9:12AM Hearing loss May 18 2014 9:12AM Foot pain, right Nov 05 2014 2:50PM Hypertension Nov 26 2014 10:51AM Hyperlipidemia Nov 26 2014 10:51AM skilled nursing use of drug Nov 26 2014 10:51AM Hypertension May 25 2015 11:53AM Hyperlipidemia May 25 2015 11:53AM 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 May 25 2015 11:53AM Primary osteoarthritis involving multiple joints May 25 2015 10:29AM Type 2 diabetes mellitus without complication DIET controlled May 25 2015 10: 29AM Hypertension May 25 2015 10:29AM Mixed hyperlipidemia May 25 2015 10:29AM Mild Chronic Depression and anxiety Stable May 25 2015 10:29AM Payers Insurance Name Company Name Plan Name Plan Number Policy Number Policy Group Number Start Date Medicare Part A Medicare Part A [id number] N/A [employer] Insurance Company [employer] Insuran [id number] N/A [facility] [id number] N/A [employer] Ins. Co. [employer] Co [id number] N/A History of Encounters Visit Date Visit Type Provider 05/25/2015 Office visit WALLY JUAREZ 11/26/2014 Office visit WALLY JUAREZ 11/05/2014 Office visit WALLY JUAREZ 05/18/2014 Office visit WALLY JUAREZ 01/21/2014 Office visit WALLY JUAREZ 12/30/2013 Office visit WALLY VILLA PA 11/17/2013 [...]
--- OUTSIDE RECORDS SUMMARY | 2018-03-15 09:50 | XMS REPORT ---
Author Author WALLY VILLA [facility] Address [address] [place], [place] [address] Care Team Providers Care Sheet Metal Installer Name Role Phone WALLY VILLA PCP Unavailable [...] [facility] #[id number] Reviewed 07/28/2011 12:00 AM Depo-Medrol 80 Mg Im/[facility] [id number] Reviewed 08/25/2011 12:00 AM ROUTINE VENIPUNCTURE Reviewed 08/25/2011 12:00 AM COMPLETE CBC W/AUTO DIFF WBC Returned 08/25/2011 12:00 AM COMPREHEN METABOLIC PANEL Returned 08/25/2011 12:00 AM LIPID PANEL Returned 11/30/2011 12:00 AM ROUTINE VENIPUNCTURE Reviewed 11/30/2011 12:00 AM LIPID PANEL Returned 05/15/2012 11:24 AM Flu Injection 3 Years And Above [facility] [place] [id number] RHC Reviewed 05/15/2012 12:00 AM Pneumovax Injection - RHC Reviewed 06/20/2012 12:00 AM THER/PROPH/DIAG INJ SC/IM Reviewed 06/20/2012 12:00 AM Decadron, Per 1 Mg [facility] [place] [address]-68 Reviewed 06/20/2012 12:00 AM Depo-Medrol, Per 80 Mg [facility] [place]#2744-8867-11 Reviewed 02/05/2013 12:00 AM THER/PROPH/DIAG INJ SC/IM Reviewed 02/05/2013 12:00 AM Decadron, Per 1 Mg [facility] [place] [address]-82 Reviewed 02/05/2013 12:00 AM Depo-Medrol, Per 80 Mg [facility] [place]#4140-0828-45 Reviewed 02/05/2013 12:00 AM ROUTINE VENIPUNCTURE Reviewed [...] 12/30/2013 12:00 AM Decadron, Per 1 Mg [facility] [place] [address]-93 Reviewed 05/18/2014 12:00 AM COMPLETE CBC W/AUTO DIFF WBC Returned 05/18/2014 12:00 AM COMPREHEN METABOLIC PANEL Returned 05/18/2014 12:00 AM LIPID PANEL Returned 05/18/2014 12:00 AM ROUTINE VENIPUNCTURE Reviewed 11/05/2014 12:00 AM THER/PROPH/DIAG INJ SC/IM Reviewed 11/05/2014 12:00 AM Decadron, Per 1 Mg [facility] [place] [address]-08 Reviewed 11/05/2014 12:00 AM Depo-Medrol, Per 80 Mg [facility] [place]#8363-5397-47 Reviewed 11/05/2014 12:00 AM Toradol 60 Mg [facility] [place]#7827-9000-69 Reviewed 11/26/2014 12:00 AM COMPLETE CBC W/AUTO DIFF WBC Returned 11/26/2014 12:00 AM COMPREHEN METABOLIC PANEL Returned 11/26/2014 12:00 AM LIPID PANEL Returned 11/26/2014 12:00 AM ROUTINE VENIPUNCTURE Reviewed 01/19/2011 12:00 AM THER/PROPH/DIAG INJ SC/IM Reviewed 01/19/2011 12:00 AM Nubain 10mg Reviewed 01/19/2011 12:00 AM Phenergan 50 Mg Im [id number] Reviewed Results Summary Data and Description Results [...] BILI 0.50 mg/dLCALCIUM 9.70 mg/dLeGFR >60 mL/min/1.73 [id number] 186.0 mg/dLCHOLESTEROL 275.0 mg/dLHDL 55.0 mg/dLLDL (CALC) [...] Vis Given Vis Pub CVX Influenza 05/26/2010 [facility] Fluzone [id number] Intramuscular Left Deltoid 05/26/2010 02/22/2010 999 Influenza 05/15/2012 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 Nov 17 2013 10:12AM Eustachian Tube Dysfunction Nov 17 2013 10:07AM Hypertension Nov 17 2013 10:07AM Hyperlipidemia Nov 17 2013 10:07AM Seasonal Allergies Dec 30 2013 3:17PM Labyrinthitis Dec 30 2013 3:17PM Eustachian Tube Dysfunction Jan 21 2014 9:10AM Seasonal Allergies Jan 21 2014 9:10AM Post-nasal drainage Jan 21 2014 9:10AM Hypertension May 18 2014 9:16AM Hyperlipidemia May 18 2014 9:16AM 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 May 18 2014 9:16AM Eustachian Tube Dysfunction May 18 2014 9:12AM Hypertension May 18 2014 9:12AM Arthritis unspecified May 18 2014 9:12AM Hyperlipidemia May 18 2014 9:12AM Depression and anxiety May 18 2014 9:12AM Hearing loss May 18 2014 9:12AM Foot pain, right Nov 05 2014 2:50PM Hypertension Nov 26 2014 10:51AM Hyperlipidemia Nov 26 2014 10:51AM FDC use of drug Nov 26 2014 10:51AM Hypertension May 25 2015 11:53AM Hyperlipidemia May 25 2015 11:53AM 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 Co. [employer] [id number] N/A History of Encounters Visit Date Visit [...]
[2018-03-15 09:51] LABS: BASOPHILS # (AUTO) 0.1 10^3/uL (0.0-0.1); BASOPHILS % (AUTO) 1 % (0-10); EOSINOPHILS % (AUTO) 0 % (0-10); HEMATOCRIT 37 % (35-52); HEMOGLOBIN 12.6 G/DL (11.5-16.0); LYMPHOCYTES # (AUTO) 1.4 X 10^3 (1.0-4.0); LYMPHOCYTES % (AUTO) 18 % (12-44); MEAN CORPUSCULAR HEMOGLOBIN 30 PG (25-34); MEAN CORPUSCULAR HGB CONC 34 G/DL (32-36); MEAN CORPUSCULAR VOLUME 89 FL (80-99); MEAN PLATELET VOLUME 8.5 FL (7.4-10.4); MONOCYTES # (AUTO) 0.6 X 10^3 (0.0-1.0); MONOCYTES % (AUTO) 7 % (0-12); NEUTROPHILS # (AUTO) 5.9 X 10^3 (1.8-7.8); NEUTROPHILS % (AUTO) 74 % (42-75); PLATELET COUNT 343 10^3/uL (130-400); RED BLOOD COUNT 4.18 10^6/uL (4.35-5.85); RED CELL DISTRIBUTION WIDTH 13.9 % (10.0-14.5); WHITE BLOOD COUNT 7.9 10^3/uL (4.3-11.0)
--- OUTSIDE RECORDS SUMMARY | 2018-03-15 09:51 | XMS REPORT ---
Author Author [facility] Organization [facility] Address [address] [place], [place] [address] Care Team Providers Care Inspector Conveyor Line Name Role Phone PCP Unavailable Allergies and Adverse Reactions Name Reaction Notes SULFA (SULFONAMIDES) PENICILLINS Plan of Treatment Not available. Medications Active Name Start Date Estimated Completion Date SIG Comments Celexa Oral Tablet 20 mg 01/11/2011 take 1 tablet (20 mg) by oral route once daily Suphedrine oral tablet 30 mg 12/30/2013 take1- 2 tablets every 4 hours as needed for dizziness Flonase nasal spray,suspension 50 mcg/actuation 05/18/2014 inhale 1 spray by nasal route 2 times a day lisinopril-hydrochlorothiazide oral tablet 10-12.5 mg 05/18/2014 11/14/2014 TAKE 1 TABLET DAILY -THANK YOU. lovastatin Oral Tablet 20 mg 05/20/2014 11/16/2014 take 1 tablet (20 mg) by oral route once daily with the evening meal for 30 days meloxicam oral tablet 15 mg 11/05/2014 12/05/2014 take 1 tablet (15 mg) by oral route once daily for 30 days tramadol oral tablet 50 mg 11/05/2014 take 1 tablet by oral route 4 times a day as needed Name Start Date Expiration Date SIG Comments [...] Returned 05/18/2014 12:00 AM ROUTINE VENIPUNCTURE Reviewed 01/19/2011 12:00 [...] BILI 0.50 mg/dLCALCIUM 9.70 mg/dLeGFR >60 mL/min/1.73 [id number] 186.0 mg/dLCHOLESTEROL 275.0 mg/dLHDL 55.0 mg/dLLDL (CALC) [...] 61 History Of Immunizations Name Date Admin Mfg Name Mfg Code Trade Name Lot# Route Inj Vis Given Vis Pub CVX Influenza 05/26/2010 sanofi pasteur PMC Fluzone [id number] Intramuscular Left Deltoid 05/26/2010 02/22/2010 999 Influenza 05/15/2012 sanofi pasteur PMC Fluzone [id number] Intramuscular Right Deltoid 05/15/2012 01/15/2012 141 Pneumococcal [...] Depression and anxiety Nov 17 2013 10:12AM nursing home medication use Nov 17 2013 10:12AM Eustachian Tube Dysfunction Nov 17 2013 10:07AM Hypertension Nov 17 2013 10:07AM Hyperlipidemia Nov 17 2013 10:07AM Seasonal Allergies Dec 30 2013 3:17PM Labyrinthitis Dec 30 2013 3:17PM Eustachian Tube Dysfunction Jan 21 2014 9:10AM Seasonal Allergies Jan 21 2014 9:10AM Post-nasal drainage Jan 21 2014 9:10AM Hypertension May 18 2014 9:16AM Hyperlipidemia May 18 2014 9:16AM nursing home use of drug May 18 2014 9:16AM Eustachian Tube Dysfunction May 18 2014 9:12AM Hypertension May 18 2014 9:12AM Arthritis unspecified May 18 2014 9:12AM Hyperlipidemia May 18 2014 9:12AM Depression and anxiety May 18 2014 9:12AM Hearing loss May 18 2014 9:12AM Foot pain, right Nov 05 2014 2:50PM Payers Insurance Name Company Name Plan Name Plan Number Policy Number Policy Group Number Start Date Medicare Part A Medicare Part A [id number] N/A Patient Communicator Insurance Company [facility] Insuran [id number] N/A Bcbs Bcbs [facility] [id number] N/A Patient Communicator Ins. Co. [facility] Monstrous Ins Co [id number] N/A History of Encounters Visit Date Visit Type Provider 11/05/2014 Office visit JO VILLA PA 05/18/2014 Office visit JO VILLA PA 01/21/2014 Office visit JO VILLA PA 12/30/2013 Office visit JO VILLA PA 11/17/2013 Office visit JO VILLA PA 02/05/2013 Office visit JO VILLA PA 01/07/2013 Office visit JO VILLA PA 12/24/2012 Office visit JO VILLA PA 06/20/2012 Office visit JO VILLA PA 05/15/2012 Office visit JO VILLA PA 02/01/2012 Office visit JO VILLA PA 11/30/2011 Office visit JO VILLA PA 11/09/2011 Office visit JO VILLA PA 08/25/2011 Office visit JO VILLA PA 07/28/2011 Office visit JO VILLA PA 06/20/2011 Office visit JO VILLA PA 03/14/2011 Office visit Jo Villa PA-C 02/06/2011 Office visit Jo Villa PA-C 01/19/2011 Office visit Jo Villa PA-C 01/11/2011 Office visit Jo Villa PA-C 05/26/2010 Nurse visit Jo Villa PA-C 07/20/2009 Office visit Jo Villa PA-C 05/19/2009 Nurse visit Jo Villa PA-C
--- OUTSIDE RECORDS SUMMARY | 2018-03-15 09:52 | XMS REPORT ---
Author Author [facility] Organization [facility] Address [address] [place], [place] [address] Care Team Providers Care Evp Sales Name Role Phone PCP Unavailable Allergies and [...] nasal route 2 times a day tramadol oral tablet 50 mg 11/05/2014 take [...] times a day for 30 days meloxicam oral tablet 15 mg 11/05/2014 12/05/2014 take 1 tablet (15 mg) by oral route once daily for 30 days Problem List Description Status [...] THER/PROPH/DIAG INJ SC/IM Reviewed 11/26/2014 12:00 AM COMPLETE CBC W/AUTO [...] BILI 0.50 mg/dLCALCIUM 9.70 mg/dLeGFR >60 mL/min/1.73 [id number] 186.0 mg/dLCHOLESTEROL 275.0 mg/dLHDL 55.0 mg/dLLDL (CALC) [...] Vis Given Vis Pub CVX Influenza 05/26/2010 sanadaffix pasteur PMC Fluzone [id number] Intramuscular Left Deltoid 05/26/2010 02/22/2010 999 Influenza 05/15/2012 sanofi pasteur PMC Fluzone [id number] Intramuscular Right Deltoid 05/15/2012 01/15/2012 141 Pneumococcal [...] Depression and anxiety Nov 17 2013 10:12AM terminal make 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 medication use Nov 17 2013 10:12AM [...] 9:16AM Hyperlipidemia May 18 2014 9:16AM terminal make up operator use of drug May 18 2014 9:16AM Eustachian Tube Dysfunction May 18 2014 9:12AM Hypertension May 18 2014 9:12AM Arthritis unspecified May 18 2014 9:12AM Hyperlipidemia May 18 2014 9:12AM Depression and anxiety May 18 2014 9:12AM Hearing loss May 18 2014 9:12AM Foot pain, right Nov 05 2014 2:50PM Hypertension Nov 26 2014 10:51AM Hyperlipidemia Nov 26 2014 10:51AM terminal make up operator use of drug Nov 26 2014 10:51AM Payers Insurance Name Company Name Plan Name Plan Number Policy Number Policy Group Number Start Date Medicare Part A Medicare Part A [id number] N/A [employer] Insurance Company [employer] Insuran [id number] N/A [facility] [id number] N/A [employer] Ins. Co. [employer] Ins Co [id number] N/A History of Encounters Visit Date Visit Type Provider 11/26/2014 Office visit JO JUAREZ 11/05/2014 Office visit JO JUAREZ 05/18/2014 Office visit JO VILLA PA 01/21/2014 [...]
--- OUTSIDE RECORDS SUMMARY | 2018-03-15 09:52 | XMS REPORT ---
Author Author WALLY VILLA [facility] Address [address] [place], [place] [address] Care Team Providers Care Director Of Maternity Services Name Role Phone WALLY VILLA PCP Unavailable [...] A DAY fluticasone 50 mcg/actuation nasal spray,suspension 05/31/2015 INHALE [...] SC/IM Reviewed 07/28/2011 12:00 AM Decadron Inj.1mg-([facility] #[id number] Reviewed 07/28/2011 12:00 AM Depo-Medrol 80 Mg Im/[facility] [id number] Reviewed 08/25/2011 12:00 AM ROUTINE VENIPUNCTURE Reviewed 08/25/2011 12:00 AM COMPLETE CBC W/AUTO DIFF WBC Returned 08/25/2011 12:00 AM COMPREHEN METABOLIC PANEL Returned 08/25/2011 12:00 AM LIPID PANEL Returned 11/30/2011 12:00 AM ROUTINE VENIPUNCTURE Reviewed 11/30/2011 12:00 AM LIPID PANEL Returned 05/15/2012 11:24 AM Flu Injection 3 Years And Above [facility]# [address]-44 RHC Reviewed 05/15/2012 12:00 AM Pneumovax Injection - RH Reviewed 06/20/2012 12:00 AM THER/PROPH/DIAG INJ SC/IM Reviewed 06/20/2012 12:00 AM Decadron, Per 1 Mg [facility]# [address]-33 Reviewed 06/20/2012 12:00 AM Depo-Medrol, Per 80 Mg [facility]#3130-2352-25 Reviewed 02/05/2013 12:00 AM THER/PROPH/DIAG INJ SC/IM Reviewed 02/05/2013 12:00 AM Decadron, Per 1 Mg [facility]# [address]-03 Reviewed 02/05/2013 12:00 AM Depo-Medrol, Per 80 Mg [facility]#5093-4370-23 Reviewed 02/05/2013 12:00 AM ROUTINE VENIPUNCTURE Reviewed [...] 12:00 AM Decadron, Per 1 Mg [facility]# [address]-53 Reviewed 05/18/2014 12:00 AM COMPLETE CBC W/AUTO DIFF WBC Returned 05/18/2014 12:00 AM COMPREHEN METABOLIC PANEL Returned 05/18/2014 12:00 AM LIPID PANEL Returned 05/18/2014 12:00 AM ROUTINE VENIPUNCTURE Reviewed 11/05/2014 12:00 AM THER/PROPH/DIAG INJ SC/IM Reviewed 11/05/2014 12:00 AM Decadron, Per 1 Mg [facility]# [address]-48 Reviewed 11/05/2014 12:00 AM Depo-Medrol, Per 80 Mg [facility]#1050-3266-18 Reviewed 11/05/2014 12:00 AM Toradol 60 Mg [facility]#3129-5233-71 Reviewed 11/26/2014 12:00 AM COMPLETE CBC W/AUTO DIFF WBC Returned 11/26/2014 12:00 AM COMPREHEN METABOLIC PANEL Returned 11/26/2014 12:00 AM LIPID PANEL Returned 11/26/2014 12:00 AM ROUTINE VENIPUNCTURE Reviewed 01/19/2011 12:00 AM THER/PROPH/DIAG INJ SC/IM Reviewed 01/19/2011 12:00 AM Nubain 10mg Reviewed 01/19/2011 12:00 AM Phenergan 50 Mg Im [id number] Reviewed Results Summary Data and Description Results [...] BILI 0.50 mg/dLCALCIUM 9.70 mg/dLeGFR >60 mL/min/1.73 [id number] 186.0 mg/dLCHOLESTEROL 275.0 mg/dLHDL 55.0 mg/dLLDL (CALC) [...] CVX Influenza 05/26/2010 sanofi pasteur PMC Fluzone [id number] Intramuscular Left Deltoid 05/26/2010 02/22/2010 999 Influenza 05/15/2012 sanofi pasteur PMC Fluzone [id number] Intramuscular Right Deltoid 05/15/2012 01/15/2012 141 X [...] Depression and anxiety Nov 17 2013 10:12AM [facility] medication use Nov 17 2013 10:12AM Eustachian Tube Dysfunction Nov 17 2013 10:07AM Hypertension Nov 17 2013 10:07AM Hyperlipidemia Nov 17 2013 10:07AM Seasonal Allergies Dec 30 2013 3:17PM Labyrinthitis Dec 30 2013 3:17PM Eustachian Tube Dysfunction Jan 21 2014 9:10AM Seasonal Allergies Jan 21 2014 9:10AM Post-nasal drainage Jan 21 2014 9:10AM Hypertension May 18 2014 9:16AM Hyperlipidemia May 18 2014 9:16AM M[facility] use of drug May 18 2014 9:16AM Eustachian Tube Dysfunction May 18 2014 9:12AM Hypertension May 18 2014 9:12AM Arthritis unspecified May 18 2014 9:12AM Hyperlipidemia May 18 2014 9:12AM Depression and anxiety May 18 2014 9:12AM Hearing loss May 18 2014 9:12AM Foot pain, right Nov 05 2014 2:50PM Hypertension Nov 26 2014 10:51AM Hyperlipidemia Nov 26 2014 10:51AM superintendent terminal use of drug Nov 26 2014 10:51AM Hypertension May 25 2015 11:53AM Hyperlipidemia May 25 2015 11:53AM superintendent terminal use of drug May 25 2015 11:53AM [...] of both ears Nov 29 2015 11:27AM Payers Insurance Name Company Name Plan Name Plan Number Policy Number Policy Group Number Start Date Medicare Part A Medicare [facility] [id number] N/A [employer] Company [employer] Insuran [id number] N/A Medicare Part A Medicare - Lab/Xray [id number] N/A BCBS Bcbs [facility] [id number] N/A Medicare Part A Medicare Part A [id number] N/A [employer]. Co. [place] [employer] LIfe Ins Co [id number] N/A History of Encounters Visit Date Visit Type Provider 11/29/2015 Office visit WALLY JUAREZ 11/15/2015 Office [...] visit WALLY JUAREZ 08/25/2011 Office visit WALLY VILLA PA 07/28/2011 Office visit WALLY JUAREZ 06/20/2011 Office visit WALLY VILLA PA 03/14/2011 Office visit Wally Villa PA-C 02/06/2011 Office visit Wally Villa PA-C 01/19/2011 Office visit Wally JUAREZ-C 01/11/2011 Office visit Wally JUAREZ-C 05/26/2010 Nurse visit Wally Villa PA-C 07/20/2009 Office visit Wally Villa PA-C 05/19/2009 Nurse visit Wally Villa PA-C
--- OUTSIDE RECORDS SUMMARY | 2018-03-15 09:54 | XMS REPORT ---
Author Author WALLY VILLA [facility] Address [address] [place], [place] [address] Care Team Providers Care Raw Stock Machine Feeder Name Role Phone WALLY VILLA PCP Unavailable [...] 02/26/2017 TAKE 1 TABLET DAILY -THANK YOU. Name [...] daily in the evening for 30 days Macrodantin 50 mg oral [...] HC BMI BSA BMI Percentile O2 Sat(%) 08/04/2016 10:15:00 AM 115 mmHg 70 mmHg 60 bpm 18 rpm 98.3 F 172 lbs 64 in 29.52 kg/m2 1.88 m2 98 % 06/15/2016 2:29:00 PM 130 mmHg 62 mmHg 62 bpm 16 rpm 98.2 F 180 lbs 64 in 30.8966 kg/m 1.9201 m 98 % 05/18/2016 11:29:00 AM 130 mmHg [...] SC/IM Reviewed 07/28/2011 12:00 AM Decadron Inj.1mg-([facility] #[id number] Reviewed 07/28/2011 12:00 AM Depo-Medrol 80 Mg Im/[facility] [id number] Reviewed 08/25/2011 12:00 AM ROUTINE VENIPUNCTURE Reviewed [...] AM Flu Injection 3 Years And Above [facility]# [address]-83 RHC Reviewed 05/15/2012 12:00 AM Pneumovax Injection - RHC Reviewed 06/20/2012 12:00 AM THER/PROPH/DIAG INJ SC/IM Reviewed 06/20/2012 12:00 AM Decadron, Per 1 Mg [facility]# [address]-28 Reviewed 06/20/2012 12:00 AM Depo-Medrol, Per 80 Mg [facility]#8146-0495-93 Reviewed 02/05/2013 12:00 AM THER/PROPH/DIAG INJ SC/IM Reviewed 02/05/2013 12:00 AM Decadron, Per 1 Mg [facility]# [address]-53 Reviewed 02/05/2013 12:00 AM Depo-Medrol, Per 80 Mg [facility]#4791-4834-95 Reviewed 02/05/2013 12:00 AM ROUTINE VENIPUNCTURE Reviewed [...] 12/30/2013 12:00 AM Decadron, Per 1 Mg [place]# [address]-46 Reviewed 05/18/2014 12:00 AM COMPLETE CBC W/AUTO DIFF WBC Reviewed 05/18/2014 12:00 AM COMPREHEN METABOLIC PANEL Reviewed 05/18/2014 12:00 AM LIPID PANEL Reviewed 05/18/2014 12:00 AM ROUTINE VENIPUNCTURE Reviewed 11/05/2014 12:00 AM THER/PROPH/DIAG INJ SC/IM Reviewed 11/05/2014 12:00 AM Decadron, Per 1 Mg [facility]# [address]-27 Reviewed 11/05/2014 12:00 AM Depo-Medrol, Per 80 Mg ND#[address]-89 Reviewed 11/05/2014 12:00 AM Toradol 60 Mg [facility]#5550-5406-99 Reviewed 11/26/2014 12:00 AM COMPLETE CBC W/AUTO DIFF WBC Reviewed 11/26/2014 12:00 AM COMPREHEN METABOLIC PANEL Reviewed 11/26/2014 12:00 AM LIPID PANEL Reviewed 11/26/2014 12:00 AM ROUTINE VENIPUNCTURE Reviewed 01/19/2011 12:00 AM THER/PROPH/DIAG INJ SC/IM Reviewed 01/19/2011 12:00 AM Nubain 10mg Reviewed 01/19/2011 12:00 AM Phenergan 50 Mg Im [id number] Reviewed Results Summary Date and Description Results [...] Of Immunizations Name Date Admin Mfg Name [facility] Code Trade Name Lot# Route Inj Vis Given Vis Pub CVX Influenza 05/26/2010 sanofi pasteur PMC Fluzone [id number] Intramuscular Left Deltoid 05/26/2010 02/22/2010 999 Influenza 05/15/2012 sanofi pasteur PMC Fluzone [id number] Intramuscular Right Deltoid 05/15/2012 01/15/2012 141 X 05/15/2012 Merck & Co., Inc. 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 exterminator medication use Nov 17 2013 10:12AM Eustachian Tube Dysfunction Nov 17 2013 10:07AM Hypertension Nov 17 2013 10:07AM Hyperlipidemia Nov 17 2013 10:07AM Seasonal Allergies Dec 30 2013 3:17PM Labyrinthitis Dec 30 2013 3:17PM Eustachian Tube Dysfunction Jan 21 2014 9:10AM Seasonal Allergies Jan 21 2014 9:10AM Post-nasal drainage Jan 21 2014 9:10AM Hypertension May 18 2014 9:16AM Hyperlipidemia May 18 2014 9:16AM predatory animal exterminator use of drug May 18 2014 9:16AM Eustachian Tube Dysfunction May 18 2014 9:12AM Hypertension May 18 2014 9:12AM Arthritis unspecified May 18 2014 9:12AM Hyperlipidemia May 18 2014 9:12AM Depression and anxiety May 18 2014 9:12AM Hearing loss May 18 2014 9:12AM Foot pain, right Apr 23 2015 2:50PM Hypertension Nov 26 2014 10:51AM Hyperlipidemia Nov 26 2014 10:51AM predatory animal exterminator use of drug Nov 26 2014 10:51AM Hypertension May 25 2015 11:53AM Hyperlipidemia May 25 2015 11:53AM shelter use of drug May 25 2015 11:53AM [...] 2016 10:57AM Hyperlipidemia May 18 2016 10:57AM shelter use of drug May 18 2016 10:57AM Mild Acute Memory loss of unknown cause May 18 2016 11:29AM Acute cystitis with hematuria Jun 15 2016 2:30PM Moderate Chronic Stress incontinence, female Jun 15 2016 2:30PM Actinic keratoses Aug 04 2016 11:39AM Payers Insurance Name Company Name Plan Name Plan Number Policy Number Policy Group Number Start Date Medicare [facility] Medicare [facility] [id number] N/A [employer]. [place] [employer] Life Ins Co [id number] Friday, 2010 BCBS Bcbs [facility] [id number] N/A Medicare Part A Medicare Part A [id number] N/A [place] [employer] Life Ins. Co. [place] [employer] LIfe Ins Co [id number] N/A [employer] Insurance Company [place] [employer] Insuran [id number] N/A Medicare Part A Medicare - Lab/Xray [id number] N/A History of Encounters Visit Date Visit Type Provider 08/04/2016 Office visit WALLY JUAREZ 06/15/2016 Office [...]
--- OUTSIDE RECORDS SUMMARY | 2018-03-15 09:55 | XMS REPORT ---
Author Author WALLY VILLA [facility] Address [address] [place], [place] [id number] Care Team Providers Care Foxer Name Role Phone WALLY VILLA PCP Unavailable Allergies and Adverse Reactions Name Reaction Notes SULFA (SULFONAMIDES) PENICILLINS Plan of Treatment Planned Activity Comments Planned Date Planned Time Plan/Goal COMPLETE CBC W/AUTO DIFF WBC 05/18/2016 12:00 AM COMPREHEN METABOLIC PANEL 05/18/2016 12:00 AM LIPID PANEL 05/18/2016 12:00 AM THER/PROPH/DIAG INJ SC/IM 12/24/2012 12:00 [...] AM Decadron Inj.1mg-([facility]) [facility] #[id number] Reviewed 07/28/2011 12:00 AM Depo-Medrol 80 Mg Im/[facility] [id number] Reviewed 08/25/2011 12:00 AM ROUTINE VENIPUNCTURE Reviewed 08/25/2011 12:00 AM COMPLETE CBC W/AUTO DIFF WBC Returned 08/25/2011 12:00 AM COMPREHEN METABOLIC PANEL Returned 08/25/2011 12:00 AM LIPID PANEL Returned 05/18/2016 12:00 AM ROUTINE VENIPUNCTURE Reviewed 11/30/2011 12:00 AM ROUTINE VENIPUNCTURE Reviewed 11/30/2011 12:00 AM LIPID PANEL Returned 05/15/2012 11:24 AM Flu Injection 3 Years And Above [facility]# [address]-56 RHC Reviewed 05/15/2012 12:00 AM Pneumovax Injection - RHC Reviewed 06/20/2012 12:00 AM THER/PROPH/DIAG INJ SC/IM Reviewed 06/20/2012 12:00 AM Decadron, Per 1 Mg [facility]# [address]-59 Reviewed 06/20/2012 12:00 AM Depo-Medrol, Per 80 Mg [facility]#3138-4060-85 Reviewed 02/05/2013 12:00 AM THER/PROPH/DIAG INJ SC/IM Reviewed 02/05/2013 12:00 AM Decadron, Per 1 Mg [facility]# [address]-21 Reviewed 02/05/2013 12:00 AM Depo-Medrol, Per 80 Mg [facility]#7567-8674-14 Reviewed 02/05/2013 12:00 AM ROUTINE VENIPUNCTURE Reviewed [...] 12/30/2013 12:00 AM Decadron, Per 1 Mg [facility]# [address]-29 Reviewed 05/18/2014 12:00 AM COMPLETE CBC W/AUTO DIFF WBC Returned 05/18/2014 12:00 AM COMPREHEN METABOLIC PANEL Returned 05/18/2014 12:00 AM LIPID PANEL Returned 05/18/2014 12:00 AM ROUTINE VENIPUNCTURE Reviewed 11/05/2014 12:00 AM THER/PROPH/DIAG INJ SC/IM Reviewed 11/05/2014 12:00 AM Decadron, Per 1 Mg [facility]# [address]-71 Reviewed 11/05/2014 12:00 AM Depo-Medrol, Per 80 Mg [facility]#2140-6672-75 Reviewed 11/05/2014 12:00 AM Toradol 60 Mg [facility]#7825-0543-80 Reviewed 11/26/2014 12:00 AM COMPLETE CBC W/AUTO DIFF WBC Returned 11/26/2014 12:00 AM COMPREHEN METABOLIC PANEL Returned 11/26/2014 12:00 AM LIPID PANEL Returned 11/26/2014 12:00 AM ROUTINE VENIPUNCTURE Reviewed 01/19/2011 12:00 AM THER/PROPH/DIAG INJ SC/IM Reviewed 01/19/2011 12:00 AM Nubain 10mg Reviewed 01/19/2011 12:00 AM Phenergan 50 Mg Im [id number] Reviewed Results Summary Data and Description Results [...] BILI 0.50 mg/dLCALCIUM 9.70 mg/dLeGFR >60 mL/min/1.73 [id number] 186.0 mg/dLCHOLESTEROL 275.0 mg/dLHDL 55.0 mg/dLLDL (CALC) [...] CVX Influenza 05/26/2010 sanofi pasteur PMC Fluzone [id number] Intramuscular Left Deltoid 05/26/2010 02/22/2010 999 Influenza 05/15/2012 sanofi pasteur PMC Fluzone [id number] Intramuscular Right Deltoid 05/15/2012 01/15/2012 141 X [...] Depression and anxiety Nov 17 2013 10:12AM intermediate card tender medication use Nov 17 2013 10:12AM Eustachian Tube Dysfunction Nov 17 2013 10:07AM Hypertension Nov 17 2013 10:07AM Hyperlipidemia Nov 17 2013 10:07AM Seasonal Allergies Dec 30 2013 3:17PM Labyrinthitis Dec 30 2013 3:17PM Eustachian Tube Dysfunction Jan 21 2014 9:10AM Seasonal Allergies Jan 21 2014 9:10AM Post-nasal drainage Jan 21 2014 9:10AM Hypertension May 18 2014 9:16AM Hyperlipidemia May 18 2014 9:16AM intermediate card tender use of drug May 18 2014 9:16AM Eustachian Tube Dysfunction May 18 2014 9:12AM Hypertension May 18 2014 9:12AM Arthritis unspecified May 18 2014 9:12AM Hyperlipidemia May 18 2014 9:12AM Depression and anxiety May 18 2014 9:12AM Hearing loss May 18 2014 9:12AM Foot pain, right Nov 05 2014 2:50PM Hypertension Nov 26 2014 10:51AM Hyperlipidemia Nov 26 2014 10:51AM nursing home use of drug Nov 26 2014 10:51AM Hypertension May 25 2015 11:53AM Hyperlipidemia May 25 2015 11:53AM intermediate card tender use of drug May 25 2015 11:53AM [...] 2016 10:57AM Hyperlipidemia May 18 2016 10:57AM nursing home use of drug May 18 2016 10:57AM Payers Insurance Name Company Name Plan Name Plan Number Policy Number Policy Group Number Start Date Medicare Part A Medicare RHC [id number] N/A [employer] Insuran [id number] N/A Medicare Part A Medicare - Lab/Xray [id number] N/A BCBS Bcbs [facility] [id number] N/A Medicare Part A Medicare Part A [id number] N/A [employer] Ins. Co. [employer] Ins Co [id number] N/A History of Encounters Visit Date Visit Type Provider 05/18/2016 Office visit WALLY JUAREZ 11/29/2015 Office [...] visit WALLY JUAREZ 03/14/2011 Office visit Wally MONZONC 02/06/2011 Office visit Wally Villa PA-C 01/19/2011 Office visit Wally MONZONC 01/11/2011 Office visit Wally MONZONC 05/26/2010 Nurse visit Wally MONZONC 07/20/2009 Office visit Wally JUAREZ-C 05/19/2009 Nurse visit Wally MONZONC
--- OUTSIDE RECORDS SUMMARY | 2018-03-15 09:56 | XMS REPORT ---
Author Author WALLY VILLA [facility] Address [address] [place], [place] [address] Care Team Providers Care Fitness Floor Attendant Name Role Phone WALLY VILLA PCP Unavailable [...] SC/IM Reviewed 07/28/2011 12:00 AM Decadron Inj.1mg-([facility]) [facility] #[id number] Reviewed 07/28/2011 12:00 AM Depo-Medrol 80 Mg Im/[facility] [id number] Reviewed 08/25/2011 12:00 AM ROUTINE VENIPUNCTURE Reviewed 08/25/2011 12:00 AM COMPLETE CBC W/AUTO DIFF WBC Returned 08/25/2011 12:00 AM COMPREHEN METABOLIC PANEL Returned 08/25/2011 12:00 AM LIPID PANEL Returned 11/30/2011 12:00 AM ROUTINE VENIPUNCTURE Reviewed 11/30/2011 12:00 AM LIPID PANEL Returned 05/15/2012 11:24 AM Flu Injection 3 Years And Above [facility]# [address]-98 RHC Reviewed 05/15/2012 12:00 AM Pneumovax Injection - RHC Reviewed 06/20/2012 12:00 AM THER/PROPH/DIAG INJ SC/IM Reviewed 06/20/2012 12:00 AM Decadron, Per 1 Mg [facility]# [address]-26 Reviewed 06/20/2012 12:00 AM Depo-Medrol, Per 80 Mg [facility]#9108-2435-60 Reviewed 02/05/2013 12:00 AM THER/PROPH/DIAG INJ SC/IM Reviewed 02/05/2013 12:00 AM Decadron, Per 1 Mg [facility]# [address]-74 Reviewed 02/05/2013 12:00 AM Depo-Medrol, Per 80 Mg [facility]#1100-0795-24 Reviewed 02/05/2013 12:00 AM ROUTINE VENIPUNCTURE Reviewed [...] 12/30/2013 12:00 AM Decadron, Per 1 Mg [facility]# [address]-66 Reviewed 05/18/2014 12:00 AM COMPLETE CBC W/AUTO DIFF WBC Returned 05/18/2014 12:00 AM COMPREHEN METABOLIC PANEL Returned 05/18/2014 12:00 AM LIPID PANEL Returned 05/18/2014 12:00 AM ROUTINE VENIPUNCTURE Reviewed 11/05/2014 12:00 AM THER/PROPH/DIAG INJ SC/IM Reviewed 11/05/2014 12:00 AM Decadron, Per 1 Mg [facility]# [address]-80 Reviewed 11/05/2014 12:00 AM Depo-Medrol, Per 80 Mg [facility]#6714-4180-92 Reviewed 11/05/2014 12:00 AM Toradol 60 Mg [facility]#4504-6115-64 Reviewed 11/26/2014 12:00 AM COMPLETE CBC W/AUTO DIFF WBC Returned 11/26/2014 12:00 AM COMPREHEN METABOLIC PANEL Returned 11/26/2014 12:00 AM LIPID PANEL Returned 11/26/2014 12:00 AM ROUTINE VENIPUNCTURE Reviewed 01/19/2011 12:00 AM THER/PROPH/DIAG INJ SC/IM Reviewed 01/19/2011 12:00 AM Nubain 10mg Reviewed 01/19/2011 12:00 AM Phenergan 50 Mg Im [id number] Reviewed Results Summary Data and Description Results [...] BILI 0.50 mg/dLCALCIUM 9.70 mg/dLeGFR >60 mL/min/1.73 [id number] 186.0 mg/dLCHOLESTEROL 275.0 mg/dLHDL 55.0 mg/dLLDL (CALC) [...] Vis Given Vis Pub CVX [facility]2010 [facility] Fluzone [id number] Intramuscular Left Deltoid 05/26/2010 02/22/2010 999 Influenza 05/15/2012 [facility] Fluzone [id number] Intramuscular Right Deltoid 05/15/2012 01/15/2012 141 Pneumococcal [...] Depression and anxiety Nov 17 2013 10:12AM emt intermediate medication use Nov 17 2013 10:12AM Eustachian Tube Dysfunction Nov 17 2013 10:07AM Hypertension Nov 17 2013 10:07AM Hyperlipidemia Nov 17 2013 10:07AM Seasonal Allergies Dec 30 2013 3:17PM Labyrinthitis Dec 30 2013 3:17PM Eustachian Tube Dysfunction Jan 21 2014 9:10AM Seasonal Allergies Jan 21 2014 9:10AM Post-nasal drainage Jan 21 2014 9:10AM Hypertension May 18 2014 9:16AM Hyperlipidemia May 18 2014 9:16AM emt intermediate use of drug May 18 2014 9:16AM [...] 2015 11:53AM Hyperlipidemia May 25 2015 11:53AM emt intermediate use of drug May 25 2015 11:53AM [...] Date Medicare Part A Medicare Part A [id number] N/A [employer]uran [id number] N/A [facility] [id number] N/A [employer]. [employer] Co [id number] N/A History of Encounters Visit Date Visit [...]
--- NOTE | 2018-03-15 09:57 | Diagnostic Imaging Report ---
INDICATION: Right weakness and aphasia. FINDINGS: There is prominence of ventricles and sulci. There is moderate chronic microvascular ischemic disease. There is diffuse decreased attenuation in the [place]. This may be due to chronic microvascular ischemic disease, however, other underlying acute stroke cannot be excluded. There is no hydrocephalus. There is no intracranial mass, hemorrhage or extra-axial fluid collection. The calvarium is intact. The sinuses and mastoid air cells are clear. IMPRESSION: Atrophy and chronic microvascular ischemic disease. Additionally, there is diffuse decreased attenuation in the [place]. While this may be related to chronic microvascular ischemic disease, an acute CVA cannot be excluded. Further evaluation with MRI is recommended. No evidence of hemorrhage. Findings were conveyed directly to the ER physician by Dr. Mueller. Dictated by: Dictated on workstation # [id number]
--- OUTSIDE RECORDS SUMMARY | 2018-03-15 09:59 | XMS REPORT ---
Author Author [facility] Organization [facility] Address [address] [place], [place] [address] Care Team Providers Care Steam And Power Supervisor Name Role Phone PCP Unavailable Allergies and [...] BILI 0.50 mg/dLCALCIUM 9.70 mg/dLeGFR >60 mL/min/1.73 [id number] 186.0 mg/dLCHOLESTEROL 275.0 mg/dLHDL 55.0 mg/dLLDL (CALC) [...] Vis Given Vis Pub CVX Influenza 05/26/2010 sanRECEPTA biopharma pasteur PMC Fluzone [id number] Intramuscular Left Deltoid 05/26/2010 02/22/2010 999 Influenza 05/15/2012 sanofi pasteur PMC Fluzone [id number] Intramuscular Right Deltoid 05/15/2012 01/15/2012 141 Pneumococcal [...] Depression and anxiety Nov 17 2013 10:12AM medical terminologist medication use Nov 17 2013 10:12AM Eustachian Tube Dysfunction Nov 17 2013 10:07AM Hypertension Nov 17 2013 10:07AM Hyperlipidemia Nov 17 2013 10:07AM Seasonal Allergies Dec 30 2013 3:17PM Labyrinthitis Dec 30 2013 3:17PM Eustachian Tube Dysfunction Jan 21 2014 9:10AM Seasonal Allergies Jan 21 2014 9:10AM Post-nasal drainage Jan 21 2014 9:10AM Hypertension May 18 2014 9:16AM Hyperlipidemia May 18 2014 9:16AM medical terminologist use of drug May 18 2014 9:16AM Eustachian Tube Dysfunction May 18 2014 9:12AM Hypertension May 18 2014 9:12AM Arthritis unspecified May 18 2014 9:12AM Hyperlipidemia May 18 2014 9:12AM Depression and anxiety May 18 2014 9:12AM Hearing loss May 18 2014 9:12AM Foot pain, right Nov 05 2014 2:50PM Hypertension Nov 26 2014 10:51AM Hyperlipidemia Nov 26 2014 10:51AM medical terminologist use of drug Nov 26 2014 10:51AM Payers Insurance Name Company Name Plan Name Plan Number Policy Number Policy Group Number Start Date Medicare Part A Medicare Part A [id number] N/A [employer] Company [employer] Insuran [id number] N/[facility] [id number] N/A [employer] Ins. Co. [email or web address] Ins Co [id number] N/A History of Encounters Visit Date Visit [...] Jo Villa PA-C 05/26/2010 Nurse visit Jo Vlila PA-C 07/20/2009 Office visit Jo Villa PA-C 05/19/2009 Nurse visit Jo Villa PA-C
--- OUTSIDE RECORDS SUMMARY | 2018-03-15 10:01 | XMS REPORT ---
Author Author WALLY VILLA [facility] Address [address] [place], [place] [address] Care Team Providers Care Store Host Name Role Phone WALLY VILLA PCP Unavailable [...] DAY Aricept 10 mg oral tablet 05/18/2016 08/16/2016 take 1 tablet (10 mg) by oral route once daily in the evening for 30 days fluticasone 50 mcg/actuation nasal spray,suspension 06/13/2016 INHALE 1 SPRAY BY NASAL ROUTE 2 TIMES A DAY lisinopril-hydrochlorothiazide 10-12.5 mg oral tablet 07/25/2016 TAKE 1 TABLET DAILY -THANK YOU. Name [...] SC/IM Reviewed 07/28/2011 12:00 AM Decadron Inj.1mg-([facility]) [facility] #[id number] Reviewed 07/28/2011 12:00 AM Depo-Medrol 80 Mg Im/[facility] [id number] Reviewed 08/25/2011 12:00 AM ROUTINE VENIPUNCTURE Reviewed [...] AM Flu Injection 3 Years And Above [facility]# [address]-23 RHC Reviewed 05/15/2012 12:00 AM Pneumovax Injection - RHC Reviewed 06/20/2012 12:00 AM THER/PROPH/DIAG INJ SC/IM Reviewed 06/20/2012 12:00 AM Decadron, Per 1 Mg [facility]# [address]-17 Reviewed 06/20/2012 12:00 AM Depo-Medrol, Per 80 Mg [facility]#8264-2771-71 Reviewed 02/05/2013 12:00 AM THER/PROPH/DIAG INJ SC/IM Reviewed 02/05/2013 12:00 AM Decadron, Per 1 Mg [facility]# [address]-22 Reviewed 02/05/2013 12:00 AM Depo-Medrol, Per 80 Mg [facility]#9113-7114-62 Reviewed 02/05/2013 12:00 AM ROUTINE VENIPUNCTURE Reviewed [...] 12:00 AM Decadron, Per 1 Mg ND# [address]-82 Reviewed 05/18/2014 12:00 AM COMPLETE CBC W/AUTO DIFF WBC Reviewed 05/18/2014 12:00 AM COMPREHEN METABOLIC PANEL Reviewed 05/18/2014 12:00 AM LIPID PANEL Reviewed 05/18/2014 12:00 AM ROUTINE VENIPUNCTURE Reviewed 11/05/2014 12:00 AM THER/PROPH/DIAG INJ SC/IM Reviewed 11/05/2014 12:00 AM Decadron, Per 1 Mg [facility]# [address]-45 Reviewed 11/05/2014 12:00 AM Depo-Medrol, Per 80 Mg ND#7412-9261-35 Reviewed 11/05/2014 12:00 AM Toradol 60 Mg [facility]#6450-6766-75 Reviewed 11/26/2014 12:00 AM COMPLETE CBC W/AUTO DIFF WBC Reviewed 11/26/2014 12:00 AM COMPREHEN METABOLIC PANEL Reviewed 11/26/2014 12:00 AM LIPID PANEL Reviewed 11/26/2014 12:00 AM ROUTINE VENIPUNCTURE Reviewed 01/19/2011 12:00 AM THER/PROPH/DIAG INJ SC/IM Reviewed 01/19/2011 12:00 AM Nubain 10mg Reviewed 01/19/2011 12:00 AM Phenergan 50 Mg Im [id number] Reviewed Results Summary Data and Description Results [...] CVX Influenza 05/26/2010 sanofi pasteur PMC Fluzone [id number] Intramuscular Left Deltoid 05/26/2010 02/22/2010 999 Influenza 05/15/2012 sanofi pasteur PMC Fluzone [id number] Intramuscular Right Deltoid 05/15/2012 01/15/2012 141 X [...] Depression and anxiety Nov 17 2013 10:12AM alf medication use Nov 17 2013 10:12AM Eustachian Tube Dysfunction Nov 17 2013 10:07AM Hypertension Nov 17 2013 10:07AM Hyperlipidemia Nov 17 2013 10:07AM Seasonal Allergies Dec 30 2013 3:17PM Labyrinthitis Dec 30 2013 3:17PM Eustachian Tube Dysfunction Jan 21 2014 9:10AM Seasonal Allergies Jan 21 2014 9:10AM Post-nasal drainage Jan 21 2014 9:10AM Hypertension May 18 2014 9:16AM Hyperlipidemia May 18 2014 9:16AM 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 2014 9:16AM Eustachian Tube Dysfunction May 18 2014 9:12AM Hypertension May 18 2014 9:12AM Arthritis unspecified May 18 2014 9:12AM Hyperlipidemia May 18 2014 9:12AM Depression and anxiety May 18 2014 9:12AM Hearing loss May 18 2014 9:12AM Foot pain, right Nov 05 2014 2:50PM Hypertension Nov 26 2014 10:51AM Hyperlipidemia Nov 26 2014 10:51AM alf use of drug Nov 26 2014 10:51AM Hypertension May 25 2015 11:53AM Hyperlipidemia May 25 2015 11:53AM 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 May 25 2015 11:53AM [...] 2016 10:57AM Hyperlipidemia May 18 2016 10:57AM 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 [employer]. [employer] Ins Co [id number] N/A History of Encounters Visit Date Visit [...] visit WALLY JUAREZ 12/24/2012 Office visit WALLY JURAEZ 06/20/2012 Office visit WALLY JUAREZ 05/15/2012 Office visit WALLY JUAREZ 02/01/2012 Office visit WALLY JUAREZ 11/30/2011 Office visit WALLY JUAREZ 11/09/2011 Office visit WALLY JUAREZ 08/25/2011 Office visit WALLY JUAREZ 07/28/2011 Office visit WALLY JUAREZ 06/20/2011 Office visit WALLY JUAREZ 03/14/2011 Office visit Wally MONZONC 02/06/2011 Office visit Wally MONZONC 01/19/2011 Office visit Wally MONZONC 01/11/2011 Office visit Wally MONZONC 05/26/2010 Nurse visit Wally Villa PA-C 07/20/2009 Office visit Wally MONZONC 05/19/2009 Nurse visit Wally Villa PA-C
--- OUTSIDE RECORDS SUMMARY | 2018-03-15 10:02 | XMS REPORT ---
Author Author WALLY VILLA [facility] Address [address] [place], [place] [address] Care Team Providers Care Collection Teller Name Role Phone WALLY VILLA PCP Allergies [...] Reviewed 07/28/2011 12:00 AM Decadron Inj.1mg-([facility]) [facility] #[id number] Reviewed 07/28/2011 12:00 AM Depo-Medrol 80 Mg Im/[facility] [id number] Reviewed 08/25/2011 12:00 AM ROUTINE VENIPUNCTURE Reviewed [...] AM Flu Injection 3 Years And Above [facility]# [address]-76 RHC Reviewed 05/15/2012 12:00 AM Pneumovax Injection - RHC Reviewed 06/20/2012 12:00 AM THER/PROPH/DIAG INJ SC/IM Reviewed 06/20/2012 12:00 AM Decadron, Per 1 Mg [facility]# [address]-39 Reviewed 06/20/2012 12:00 AM Depo-Medrol, Per 80 Mg [facility]#4820-5206-44 Reviewed 09/14/2017 12:00 AM COMPLETE CBC W/AUTO DIFF WBC Returned 09/14/2017 12:00 AM COMPREHEN METABOLIC PANEL Returned 09/14/2017 12:00 AM LIPID PANEL Returned 09/14/2017 12:00 AM ROUTINE VENIPUNCTURE Reviewed 02/05/2013 12:00 AM THER/PROPH/DIAG INJ SC/IM Reviewed 02/05/2013 12:00 AM Decadron, Per 1 Mg [facility]# [address]-20 Reviewed 02/05/2013 12:00 AM Depo-Medrol, Per 80 Mg [facility]#7336-9290-32 Reviewed 02/05/2013 12:00 AM ROUTINE VENIPUNCTURE Reviewed [...] 12/30/2013 12:00 AM Decadron, Per 1 Mg [facility]# [address]-83 Reviewed 05/18/2014 12:00 AM COMPLETE CBC W/AUTO DIFF WBC Reviewed 05/18/2014 12:00 AM COMPREHEN METABOLIC PANEL Reviewed 05/18/2014 12:00 AM LIPID PANEL Reviewed 05/18/2014 12:00 AM ROUTINE VENIPUNCTURE Reviewed 11/05/2014 12:00 AM THER/PROPH/DIAG INJ SC/IM Reviewed 11/05/2014 12:00 AM Decadron, Per 1 Mg [facility]# [address]-31 Reviewed 11/05/2014 12:00 AM Depo-Medrol, Per 80 Mg [facility]#4696-7311-25 Reviewed 11/05/2014 12:00 AM Toradol 60 Mg [facility]#9253-0497-07 Reviewed 11/26/2014 12:00 AM COMPLETE CBC W/AUTO DIFF WBC Reviewed 11/26/2014 12:00 AM COMPREHEN METABOLIC PANEL Reviewed 11/26/2014 12:00 AM LIPID PANEL Reviewed 11/26/2014 12:00 AM ROUTINE VENIPUNCTURE Reviewed 01/19/2011 12:00 AM THER/PROPH/DIAG INJ SC/IM Reviewed 01/19/2011 12:00 AM Nubain 10mg Reviewed 01/19/2011 12:00 AM Phenergan 50 Mg Im [id number] Reviewed Results Summary Date and Description Results [...] Of Immunizations Name Date Admin Mfg Name Mf Code Trade Name Lot# Route Inj Vis Given Vis Pub CVX Influenza 05/26/2010 sanofi pasteur PMC Fluzone [id number] Intramuscular Left Deltoid 05/26/2010 02/22/2010 999 Influenza 05/15/2012 sanofi pasteur PMC Fluzone [id number] Intramuscular Right Deltoid 05/15/2012 01/15/2012 141 X 05/15/2012 Merck & Co., Inc. 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 Nov 17 2013 10:12AM Eustachian Tube Dysfunction Nov 17 2013 10:07AM Hypertension Nov 17 2013 10:07AM Hyperlipidemia Nov 17 2013 10:07AM Seasonal Allergies Dec 30 2013 3:17PM Labyrinthitis Dec 30 2013 3:17PM Eustachian Tube Dysfunction Jan 21 2014 9:10AM Seasonal Allergies Jan 21 2014 9:10AM Post-nasal drainage Jan 21 2014 9:10AM Hypertension May 18 2014 9:16AM Hyperlipidemia May 18 2014 9:16AM custodial use of drug May 18 2014 9:16AM Eustachian Tube Dysfunction May 18 2014 9:12AM Hypertension May 18 2014 9:12AM Arthritis unspecified May 18 2014 9:12AM Hyperlipidemia May 18 2014 9:12AM Depression and anxiety May 18 2014 9:12AM Hearing loss May 18 2014 9:12AM Foot pain, right Nov 05 2014 2:50PM Hypertension Nov 26 2014 10:51AM Hyperlipidemia Nov 26 2014 10:51AM custodial use of drug Nov 26 2014 10:51AM Hypertension May 25 2015 11:53AM Hyperlipidemia May 25 2015 11:53AM custodial use of drug May 25 2015 11:53AM [...] 2016 10:57AM Hyperlipidemia May 18 2016 10:57AM custodial use of drug May 18 2016 10:57AM Mild Acute Memory loss of unknown cause May 18 2016 11:29AM Acute cystitis with hematuria Jun 15 2016 2:30PM Moderate Chronic Stress incontinence, female Jun 15 2016 2:30PM Actinic keratoses Aug 04 2016 11:39AM Hypertension Sep 14 2017 8:39AM Hyperlipidemia Sep 14 2017 8:39AM 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. [employer] Co [id number] Friday, 2010 BCBS B[employer]bs [employer] [place] [id number] N/A Medicare Part A Medicare Part A [id number] N/A [employer] Co [id number] N/A [employer] Insuran [id number] N/A Medicare Part A Medicare - Lab/Xray [id number] N/A History of Encounters Visit Date Visit [...] visit WALLY JUAREZ 03/14/2011 Office visit Wally Villa PA-C 02/06/2011 Office visit Wally MONZONC 01/19/2011 Office visit Wally Villa PA-C 01/11/2011 Office visit Wally Villa PA-C 05/26/2010 Nurse visit Wally Villa PA-C 07/20/2009 Office visit Wally MONZONC 05/19/2009 Nurse visit Wally Villa PA-C
--- OUTSIDE RECORDS SUMMARY | 2018-03-15 10:04 | XMS REPORT ---
Author Author WALLY VILLA [facility] Address [address] [place], [place] [id number] Care Team Providers Care Senior Energy Trader Name Role Phone WALLY VILLA PCP Unavailable [...] SC/IM Reviewed 07/28/2011 12:00 AM Decadron Inj.1mg-([facility]) [facility] #[id number] Reviewed 07/28/2011 12:00 AM Depo-Medrol 80 Mg Im/[facility] [id number] Reviewed 08/25/2011 12:00 AM ROUTINE VENIPUNCTURE Reviewed [...] AM Flu Injection 3 Years And Above [facility]# [address]-63 RHC Reviewed 05/15/2012 12:00 AM Pneumovax Injection - [facility] Reviewed 06/20/2012 12:00 AM THER/PROPH/DIAG INJ SC/IM Reviewed 06/20/2012 12:00 AM Decadron, Per [address] [facility]# [address]-77 Reviewed 06/20/2012 12:00 AM Depo-Medrol, Per 80 Mg N[facility]#7254-2830-32 Reviewed 02/05/2013 12:00 AM THER/PROPH/DIAG INJ SC/IM Reviewed 02/05/2013 12:00 AM Decadron, Per 1 Mg ND# [address]-75 Reviewed 02/05/2013 12:00 AM Depo-Medrol, Per [address] [facility]#0762-45[address]-57 Reviewed 02/05/2013 12:00 AM ROUTINE VENIPUNCTURE Reviewed [...] 12/30/2013 12:00 AM Decadron, Per [address] [facility]# [address]-94 Reviewed 05/18/2014 12:00 AM COMPLETE CBC W/AUTO DIFF WBC Reviewed 05/18/2014 12:00 AM COMPREHEN METABOLIC PANEL Reviewed 05/18/2014 12:00 AM LIPID PANEL Reviewed 05/18/2014 12:00 AM ROUTINE VENIPUNCTURE Reviewed 11/05/2014 12:00 AM THER/PROPH/DIAG INJ SC/IM Reviewed 11/05/2014 12:00 AM Decadron, Per [address] [facility]# [address]-00 Reviewed 11/05/2014 12:00 AM Depo-Medrol, Per [address] [facility]#2827-2079-51 Reviewed 11/05/2014 12:00 AM Toradol [address] [facility]#7171-9788-11 Reviewed 11/26/2014 12:00 AM COMPLETE CBC W/AUTO DIFF WBC Reviewed 11/26/2014 12:00 AM COMPREHEN METABOLIC PANEL Reviewed 11/26/2014 12:00 AM LIPID PANEL Reviewed 11/26/2014 12:00 AM ROUTINE VENIPUNCTURE Reviewed 01/19/2011 12:00 AM THER/PROPH/DIAG INJ SC/IM Reviewed 01/19/2011 12:00 AM Nubain 10mg Reviewed 01/19/2011 12:00 AM Phenergan 50 Mg Im [id number] Reviewed Results Summary Data and Description Results [...] 0.07 #BASO 0.08 MANUAL DIFF NOT IND History Of Immunizations Name Date Admin Mfg Name Mfg Code Trade Name Lot# Route Inj Vis Given Vis Pub CVX Influenza 05/26/2010 sanofi pasteur PMC Fluzone [id number] Intramuscular Left Deltoid 05/26/2010 02/22/2010 999 Influenza 05/15/2012 sanofi pasteur PMC Fluzone [id number] Intramuscular Right Deltoid 05/15/2012 01/15/2012 141 X [...] 2014 9:16AM Hyperlipidemia May 18 2014 9:16AM 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 May 18 2014 9:16AM Eustachian Tube Dysfunction May 18 2014 9:12AM Hypertension May 18 2014 9:12AM Arthritis unspecified May 18 2014 9:12AM Hyperlipidemia May 18 2014 9:12AM Depression and anxiety May 18 2014 9:12AM Hearing loss May 18 2014 9:12AM Foot pain, right Nov 05 2014 2:50PM Hypertension Nov 26 2014 10:51AM Hyperlipidemia Nov 26 2014 10:51AM 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 [id number] N/A History of Encounters Visit Date Visit Type Provider 06/15/2016 Office visit WALLY VILLA PA 05/18/2016 [...]
--- OUTSIDE RECORDS SUMMARY | 2018-03-15 10:04 | XMS REPORT | Continuity of Care Document ---
Author Author [facility] Organization [facility] Address Unknown Phone Unavailable Allergies There is no data. Medications There is no data. Problems There is no data. Procedures There is no data. Results There is no data. Encounters ACCT No. Visit Date/Time Discharge Status Pt. Type Provider Facility Loc./Unit Complaint [id number] 09/14/2017 08:44:41 09/14/2017 23:59:59 [facility] JO VILLA [id number] 08/04/2016 10:08:50 08/04/2016 23:59:59 JO Coy [id number] 06/15/2016 14:00:33 06/15/2016 23:59:59 [facility] JO VILLA [id number] 05/25/2015 11:07:16 05/25/2015 23:59:59 [facility] JO VILLA [id number] 02/22/2015 21:27:43 02/22/2015 23:59:59 [facility] JO VILLA [id number] 11/05/2014 15:10:49 11/05/2014 23:59:59 [facility] JO VILLA [id number] 05/18/2014 09:55:10 05/18/2014 23:59:59 JO Coy [id number] 01/21/2014 10:04:52 01/21/2014 23:59:59 [facility] JO VILLA [id number] 12/30/2013 15:33:09 12/30/2013 23:59:59 JO Coy [id number] 11/17/2013 10:22:37 11/17/2013 23:59:59 [facility] JO VILLA
[2018-03-15 10:05] LABS: FIBRIN DEGRADATION PRODUCTS 1.15 UG/ML (0.00-0.49); INR 1.1 (0.8-1.4); PROTHROMBIN TIME PATIENT 14.2 SEC (12.2-14.7)
[2018-03-15 10:09] LABS: ALANINE AMINOTRANSFERASE 11 U/L (0-55); ALBUMIN 4.2 GM/DL (3.2-4.5); ALKALINE PHOSPHATASE 79 U/L (40-136); BILIRUBIN,TOTAL 0.9 MG/DL (0.1-1.0); BUN/CREATININE RATIO 13; CALCIUM 10.3 MG/DL (8.5-10.1); CARBON DIOXIDE 26 MMOL/L (21-32); CHLORIDE 94 MMOL/L (98-107); CREATININE SERUM 0.77 MG/DL (0.60-1.30); GFR ESTIMATED > 60; GLUCOSE 126 MG/DL (70-105); POTASSIUM 2.9 MMOL/L (3.6-5.0); SODIUM 133 MMOL/L (135-145); TOTAL PROTEIN 7.6 GM/DL (6.4-8.2)
--- NOTE | 2018-03-15 10:13 | Diagnostic Imaging Report ---
Indication: Altered mental status. Findings: Heart size upper limits normal. Mediastinum is unremarkable. Lungs are clear. No pleural effusion or pneumothorax. There is an abnormal appearance of the right coracoid. This is of uncertain etiology, may reflect old trauma. Impression: No acute cardiopulmonary abnormality. Abnormal appearance of the right coracoid. Again this may reflect old trauma. Recommend clinical correlation. Dictated by: Dictated on workstation # [id number]
[2018-03-15 10:22] LABS: BILIRUBIN,URINE NEGATIVE (NEGATIVE); CLARITY,URINE CLEAR; COLOR,URINE YELLOW; GLUCOSE, URINE (UA) NEGATIVE (NEGATIVE); KETONES,URINE 2+ (NEGATIVE); LEUKOCYTE ESTERASE ,URINE NEGATIVE (NEGATIVE); NITRITE,URINE NEGATIVE (NEGATIVE); PH,URINE 8 (5-9); PROTEIN,URINE NEGATIVE (NEGATIVE); UROBILINOGEN,URINE NORMAL (NORMAL)
[2018-03-15 10:36] LABS: BACTERIA,URINE NEGATIVE /HPF
[2018-03-15] MEDS ORDERED: LISI1TAB6 (10:41)
[2018-03-15] MEDS ORDERED: CITA10TA7 (10:41)
[2018-03-15] MEDS ORDERED: MEMA10TA22 (10:41)
[2018-03-15] MEDS: NS W/KCL 20 MEQ/L 1,000 ML IV ONE (10:46)
[2018-03-15] MEDS: ONDANSETRON 4 MG/2 ML (SDV) Z0FRAN IVP ONE (10:56)
[2018-03-15] MEDS: KCL 10 MEQ TAB (MICRO K) PO ONE (10:56)
[2018-03-15] MEDS ORDERED: POTA10TA10 PO (12:11)
--- NOTE | 2018-03-15 12:11 | ED Neurological Problem ---
General Chief Complaint: Altered Mental Status Stated Complaint: AMS Nursing Triage Note: PT ARRIVED PER EMS FROM DR SILVERMAN OFFICE W ALTERED MENTAL STATUS, AND WEAKNESS PT HAS SL IN L AC. LAST KNOWN WELL TIME 0845 PER SON Nursing Sepsis Screen: No Definite Risk Source: patient, family, EMS Exam Limitations: no limitations History of Present Illness Date Seen by Provider: Mar 15, 2018 Time Seen by Provider: 09:35 Initial Comments This 72-year-old woman presents to the emergency room with concern for possible stroke. She was in the waiting room of her eye doctor's office this morning when she suddenly developed altered mental status. She would not respond to family appropriately. She was unable to stand on her own. She also complained of some headache this morning. EMS was activated and found the patient to have a generalized weakness and inability to respond to questions. She seemed aphasic for them. They also reported weak right-sided legal technician but it is unclear if this was due to inability to follow instructions. Fingerstick blood sugar in the field was 102. Patient's son reports that it was a somewhat stressful morning and patient could not find her hearing aids. He was present at the time of the event and states patient seemed shaky and was unable to talk or get out of her chair. Patient does not specifically remember these events. She does have dementia at baseline. Patient was improving and talking again by the time of arrival to the ER. Son reported patient to be near baseline by the time of arrival in the ER. Stroke activation was paged. Last known well time was 08:45. Initial NIH stroke score was 4 due to disorientation and some difficulty with processing words and pictures. Allergies and Home Medications Allergies Coded Allergies: No Known Drug Allergies (Unverified , 03/15/18) Home Medications Potassium Chloride 10 Meq Tablet.er, 10 MEQ PO BID Prescribed by: MALORIE PEACE on 03/15/18 1211 Patient Home Medication List Home Medication List Reviewed: Yes Review of Systems Review of Systems Constitutional: see HPI Eyes: No Symptoms Reported Ears, Nose, Mouth, Throat: see HPI Respiratory: no symptoms reported Cardiovascular: no symptoms reported Gastrointestinal: no symptoms reported Genitourinary: no symptoms reported : No Musculoskeletal: no symptoms reported Skin: no symptoms reported Psychiatric/Neurological: See HPI Endocrine: No Symptoms Reported Hematologic/Lymphatic: No Symptoms Reported Past [id number]-[id number] Hx Patient Social History Alcohol Use: Denies Use Recreational Drug Use: No Smoking Status: Never a Smoker Recent Foreign Travel: No Contact w/Someone Who Travel: No Recent Infectious Disease Expo: No Recent Hopitalizations: No Physical Abuse: No Sexual Abuse: No Past Medical History Surgeries: No (None reported) Respiratory: No Cardiac: Yes Hypertension Neurological: Yes Dementia : No Reproductive Disorders: No Genitourinary: No Gastrointestinal: No Musculoskeletal: No Endocrine: No HEENT: No Cancer: No Psychosocial: Yes Anxiety Nursing Suicide Risk Score: 0 Integumentary: No Physical Exam Vital Signs Vital Signs - First Documented 03/15/18 09:35 Temp 98.5 Pulse 61 Resp 15 B/P (MAP) 110/66 (81) Pulse Ox 100 Capillary Refill : Less Than 3 Seconds Height, Weight, BMI Height: 5'6.00" Weight: 190lbs. oz. 86.700356ps; BMI Method:Estimated General Appearance: WD/WN, mild distress (Mildly anxious, improving with time) HEENT: PERRL/EOMI, normal ENT inspection Neck: normal inspection Respiratory: lungs clear, normal breath sounds, no respiratory distress, no accessory muscle use Cardiovascular: regular rate, rhythm, no edema, no murmur Gastrointestinal: normal bowel sounds, non tender, soft Extremities: normal inspection, no pedal edema Neurologic/Psychiatric: wireless watcher II-XII nml as tested, no motor/sensory deficits, alert, normal mood/affect, disoriented x 3, other (see NIH stroke scoring for further details) Crainal Nerves: normal hearing, normal speech, PERRL Coordination/Gait: normal finger to nose, normal gait Motor/Sensory: no motor deficit, no sensory deficit Skin: normal color, warm/dry Stroke NIH Stroke Scale Assessment Level of Consciousness: 0=Alert (0), Level of Consciousness-Questions: 2= Answer neither question (2), LOC Commands: 0=Performs both tasks (0), Visual Damon: 0=No visual loss (0), Facial Movement (Facial Paresis): 0=Normal symmetrical mnt (0), Motor Function-Arms Right: 0=No drift (0), Motor Function- Arms Left: 0=No drift (0), Motor Function-Legs Right: 0=No drift (0), Motor Function-Legs Left: 0=No drift (0), Limb Ataxia: 0=Absent (0), Sensory: 0=Normal :no loss (0), Best Language: 0=No aphasia (0), Dysarthria: 0=Normal (0), Extinction & Inattention: 0=No abnormality (0), Total: 2 Progress/Results/Core Measures Results/Orders Lab Results Laboratory Tests Test 03/15/18 09:40 03/15/18 10:10 Range/Units White Blood Count 7.9 4.3-11.0 10^3/uL Red Blood Count 4.18 L 4.35-5.85 10^6/uL Hemoglobin 12.6 11.5-16.0 G/DL Hematocrit 37 35-52 % Mean Corpuscular Volume 89 80-99 FL Mean Corpuscular Hemoglobin 30 25-34 PG Mean Corpuscular Hemoglobin Concent 34 32-36 G/DL Red Cell Distribution Width 13.9 10.0-14.5 % Platelet Count 343 130-400 10^3/uL Mean Platelet Volume 8.5 7.4-10.4 FL Neutrophils (%) (Auto) 74 42-75 % Lymphocytes (%) (Auto) 18 12-44 % Monocytes (%) (Auto) 7 0-12 % Eosinophils (%) (Auto) 0 0-10 % Basophils (%) (Auto) 1 0-10 % Neutrophils # (Auto) 5.9 1.8-7.8 X 10^3 Lymphocytes # (Auto) 1.4 1.0-4.0 X 10^3 Monocytes # (Auto) 0.6 0.0-1.0 X 10^3 Eosinophils # (Auto) 0.0 0.0-0.3 10^3/uL Basophils # (Auto) 0.1 0.0-0.1 10^3/uL Prothrombin Time 14.2 12.2-14.7 SEC INR Comment 1.1 0.8-1.4 Activated Partial Thromboplast Time 28 24-35 SEC D-Dimer 1.15 H 0.00-0.49 UG/ML Sodium Level 133 L 135-145 MMOL/L Potassium Level 2.9 L 3.6-5.0 MMOL/L Chloride Level 94 L 98-107 MMOL/L Carbon Dioxide Level 26 21-32 MMOL/L Anion Gap 13 5-14 MMOL/L Blood Urea Nitrogen 10 7-18 MG/DL Creatinine 0.77 0.60-1.30 MG/DL Estimat Glomerular Filtration Rate > 60 BUN/Creatinine Ratio 13 Glucose Level 126 H 70-105 MG/DL Calcium Level 10.3 H 8.5-10.1 MG/DL Corrected Calcium 10.1 8.5-10.1 MG/DL Total Bilirubin 0.9 0.1-1.0 MG/DL Aspartate Amino Transf (AST/SGOT) 19 5-34 U/L Alanine Aminotransferase (ALT/SGPT) 11 0-55 U/L Alkaline Phosphatase 79 40-136 U/L Troponin I < 0.30 <0.30 NG/ML Total Protein 7.6 6.4-8.2 GM/DL Albumin 4.2 3.2-4.5 GM/DL Urine Color YELLOW Urine Clarity CLEAR Urine pH 8 5-9 Urine Specific [place] 1.010 L 1.016-1.022 Urine Protein NEGATIVE NEGATIVE Urine Glucose (UA) NEGATIVE NEGATIVE Urine Ketones 2+ H NEGATIVE Urine Nitrite NEGATIVE NEGATIVE Urine Bilirubin NEGATIVE NEGATIVE Urine Urobilinogen NORMAL NORMAL MG/DL Urine Leukocyte Esterase NEGATIVE NEGATIVE Urine RBC (Auto) 2+ H NEGATIVE Urine RBC 2-5 H /HPF Urine WBC NONE /HPF Urine Squamous Epithelial Cells NONE /HPF Urine Crystals NONE /LPF Urine Bacteria NEGATIVE /HPF Urine Casts NONE /LPF Urine Mucus NEGATIVE /LPF Urine Culture Indicated NO My Orders Orders - MALORIE MUELLER MD Cbc With Automated Diff (03/15/18 09:37) Protime With Inr (03/15/18 09:37) Partial Thromboplastin Time (03/15/18 09:37) Comprehensive Metabolic Panel (03/15/18 09:37) Fibrin Degradation Products (03/15/18 09:37) Troponin I (03/15/18 09:37) Ua Culture If Indicated (03/15/18 09:37) Chest 1 View, Ap/Pa Only (03/15/18 09:37) Catheter(Urinary) Insert & Ass 03,15 (03/15/18 09:37) Ekg Tracing (03/15/18 09:37) Nothing By Mouth (03/15/18 Lunch) Accucheck Stat ONCE (03/15/18 09:37) Saline Lock/Iv-Start (03/15/18 09:37) Saline Lock/Iv-Start (03/15/18 09:37) Vital Signs Stroke Patient Q15M (03/15/18 09:37) Ct Head Wo-R/O Stroke (03/15/18 09:37) O2 (03/15/18 09:37) Intake & Output 06,14,22 (03/15/18 09:37) Monitor-Rhythm Ecg Trace Only (03/15/18 09:37) Dysphagia Screening Tool (03/15/18 09:37) Post Thrombolytic Adminstratio (03/15/18 09:37) Ns W/Kcl 20 Meq/L (Ns Iv W/Kcl 20 Meq/L) (03/15/18 10:30) Ondansetron Injection (Zofran Injectio (03/15/18 10:45) Potassium Chloride (Tablet) (Klor Con Ta (03/15/18 10:45) Medications Given in ED Vital Signs/I&O 03/15/18 03/15/18 09:35 12:30 Temp 98.5 98.5 Pulse 61 61 Resp 15 15 B/P (MAP) 110/66 (81) 110/66 (81) Pulse Ox 100 100 Blood Pressure Mean: 81 FSBG Bedside Testing Finger Stick Blood Glucose: 102 Blood Glucose Action Taken: TAKEN BY EMS REPORTED TO DR Jensen Progress Note : Progress Note CT revealed no acute abnormalities. Case was discussed with Dr. Garay, [facility]. Patient was not a TPA candidate as there was no clear indication for stroke and symptoms were resolving. No further imaging was recommended by Dr. Garay. Patient was able to ambulate. She was observed for a period of time and found to have no progression of symptoms. She was ultimately dismissed into the care of her family in baseline condition. I did offer admission for observation. Family elected to observe her at home. Potassium was replaced and her IV fluids and orally. Diagnostic Imaging Diagonstic Imaging: CT Plain Films/CT/US/NM/MRI: head Comments CT head viewed by me and report reviewed. Discussed with the radiologist and the stroke neurologist. See report below: NAME: [facility]URE [facility] REC#: [id number] PT STATUS: REG ER : 1945 PHYSICIAN: MALORIE MUELLER MD ADMIT DATE: 03/15/18/ER Signed Date of Exam: 03/15/18 CT HEAD WO-R/O STROKE INDICATION: Right weakness and aphasia. FINDINGS: There is prominence of ventricles and sulci. There is moderate chronic microvascular ischemic disease. There is diffuse decreased attenuation in the [place]. This may be due to chronic microvascular ischemic disease, however, other underlying acute stroke cannot be excluded. There is no hydrocephalus. There is no intracranial mass, hemorrhage or extra-axial fluid collection. The calvarium is intact. The sinuses and mastoid air cells are clear. IMPRESSION: Atrophy and chronic microvascular ischemic disease. Additionally, there is diffuse decreased attenuation in the [place]. While this may be related to chronic microvascular ischemic disease, an acute CVA cannot be excluded. Further evaluation with MRI is recommended. No evidence of hemorrhage. Findings were conveyed directly to the ER physician by Dr. Mueller. Dictated by: Dictated on workstation # [id number] Dict: 03/15/18 0945 Trans: 03/15/18 1027 Interpreted by: ERWIN DE PAZ MD Electronically signed by: ERWIN DE PAZ MD 03/15/18 1027 Diagonstic Imaging: Xray Plain Films/CT/US/NM/MRI: chest Comments Chest x-ray viewed by me and report reviewed. See report below: NAME: TREASURE [facility] REC#: [id number] PT STATUS: REG ER : 1945 PHYSICIAN: MALORIE MUELLER MD ADMIT DATE: 03/15/18/ER Signed Date of Exam: 03/15/18 CHEST 1 VIEW, AP/PA ONLY Indication: Altered mental status. Findings: Heart size upper limits normal. Mediastinum is unremarkable. Lungs are clear. No pleural effusion or pneumothorax. There is an abnormal appearance of the right coracoid. This is of uncertain etiology, may reflect old trauma. Impression: No acute cardiopulmonary abnormality. Abnormal appearance of the right coracoid. Again this may reflect old trauma. Recommend clinical correlation. Dictated by: Dictated on workstation # [id number] Dict: 03/15/18 1010 Trans: 03/15/18 1027 Interpreted by: ERWIN DE PAZ MD Electronically signed by: ERWIN DE PAZ MD 03/15/18 1027 Departure Impression Primary Impression: Altered mental status Qualified Codes: R41.82 - Altered mental status, unspecified Additional Impressions: Hypokalemia Dementia Qualified Codes: F03.90 - Unspecified dementia without behavioral disturbance Disposition: 01 HOME, SELF-CARE Condition: Improved Departure-Patient Inst. Referrals: JO VILLA (PCP/Family) Primary Care Physician Patient Instructions: Dementia (DC), Hypokalemia Add. Discharge Instructions: Follow-up with your primary care provider within the next week. Eat a diet rich in potassium. Drink plenty of clear liquids. Return to the emergency room promptly if you develop worsening of symptoms again. Complete your potassium prescription as prescribed. All discharge instructions reviewed with patient and/or family. Voiced understanding. Scripts Potassium Chloride (Potassium Chloride) 10 Meq Tablet.er 10 MEQ PO BID, #10 TAB Prov: MALORIE MUELLER MD 03/15/18 MALORIE MUELLER MD Mar 15, 2018 12:11
[2018-03-15 12:30] VITALS: BP 110/66
== END 2018-03-15 12:29 | disposition home or self-care (01) ==
LOC: ER 09:36
DX: R41.82 Altered mental status, unspecified (principal); E87.6 Hypokalemia; I10 Essential (primary) hypertension; F03.90 Unspecified dementia, unspecified severity, without behavioral disturbance, psychotic disturbance, mood disturbance, and anxiety; F41.9 Anxiety disorder, unspecified
CPT/HCPCS: 36415; 51701; 70450; 71045; 80053; 81000; 84484; 85025; 85379; 85610; 85730; 93005; 93041; 96361; 96374